=== PATIENT | male | born 1970 ===

== ENCOUNTER 2018-08-30 18:08 | Inpatient (IN) | payer BC ==
--- NOTE | 2018-08-30 19:20 | C.PDOC ---
History Of Present Illness 48 year old male presents to the ER with a complaint of intermittent fever since 08/14/18. He has been worked up without finding any actual source at another but had blood cultures done in another ER that were positive for gram negative rods. Patient only complains of nocturnal fevers, denies any other complaints. Time Seen by Provider: 08/30/18 19:19 Chief Complaint (Nursing): Fever History Per: Patient History/Exam Limitations: no limitations Onset/Duration Of Symptoms: Days, Intermittent Episodes Current Symptoms Are (Timing): Still Present Location Of Pain: None Associated Symptoms: Fever Severity: Moderate Pain Scale Rating Of: 4 Recent travel outside of the [place]: No Past Medical History Reviewed: Historical Data, Nursing Documentation, Vital Signs Vital Signs: Last Vital Signs Temp 97.9 F 08/30/18 18:12 Pulse 100 H 08/30/18 18:12 Resp 18 08/30/18 18:12 BP 118/84 08/30/18 18:12 Pulse Ox 97 08/30/18 18:12 - Medical History PMH: Hypercholesterolemia Surgical History: Tonsillectomy (and uvula removal) Family History: States: No Known Family Hx - Social History Hx Alcohol Use: Yes Hx Substance Use: No - Immunization History Hx Tetanus Toxoid Vaccination: No Hx Influenza Vaccination: Yes Hx Pneumococcal Vaccination: No Review Of Systems Constitutional: Positive for: Fever. Negative for: Chills Cardiovascular: Negative for: Chest Pain, Palpitations Respiratory: Negative for: Cough, Shortness of Breath Gastrointestinal: Negative for: Nausea, Vomiting Neurological: Negative for: Weakness, Numbness Physical Exam - Physical Exam Appears: Non-toxic Skin: Warm, Dry Head: Normacephalic Eye(s): bilateral: Normal Inspection Oral Mucosa: Moist Neck: Trachea Midline, Supple Chest: Symmetrical, No Tenderness Cardiovascular: Rhythm Regular Respiratory: No Rales, No Rhonchi, No Wheezing Gastrointestinal/Abdominal: Soft, No Tenderness Back: No CVA Tenderness Neurological/Psych: Oriented x3 ED Course And Treatment - Laboratory Results Result Diagrams: 08/30/18 19:29 08/30/18 19:29 ECG: Interpreted By Me, Viewed By Me ECG Rhythm: Sinus Rhythm (91), Nonspecific Changes O2 Sat by Pulse Oximetry: 97 (Room air) Pulse Ox Interpretation: Normal - Radiology CXR: Interpreted by Me, Viewed By Me CXR Interpretation: Yes: Infiltrates (?rll). No: COPD, Cardiomegaly Progress Note: EKG, blood work, CXR, and urinalysis ordered. spoke with dr franki bray with treatment course Disposition Discussed With .: Carmela Mccain Comment: accepted the pt on his service and took over the care at 8:07 PM Counseled Patient/Family Regarding: Studies Performed, Diagnosis - Disposition Disposition: HOSPITALIZED Disposition Time: 19:19 Condition: FAIR - POA Present On Arrival: Poor Glycemic Control - Clinical Impression Clinical Impression: Fever, Hepatic abscess - Scribe Statement The provider has reviewed the documentation as recorded by the Scribe Ashwin Jones All medical record entries made by the Scribe were at my direction and per sonally dictated by me. I have reviewed the chart and agree that the record accurately reflects my personal performance of the history, physical exam, medical decision making, and the department course for this patient. I have also personally directed, reviewed, and agree with the discharge instructions and disposition. Decision To Admit - Pt Status Changed To: Hospital Disposition Of: Inpatient - Admit Certification Admit to Inpatient:: After my assessment, the patient will require hospitalization for at least two midnights. This is because of the severity of symptoms shown, intensity of services needed, and/or the medical risk in this patient being treated as an outpatient. - InPatient: Physician Admission Certification:: After my assessment, the patient will require hospitalization for at least two midnights. This is because of the severity of symptoms shown, intensity of services needed, and/or the medical risk in this patient being treated as an outpatient. - . Bed Request Type: Regular Admitting Physician: Carmela Mccain Patient Diagnosis: Fever
[2018-08-30 19:35] LABS: BASO % 0.4 % (0.0-2.0); EOS % 0.3 % (0.0-4.0); HEMOGLOBIN 13.1 g/dL (12.0-18.0); LYMPH % 14.6 % (20.0-40.0); MEAN CELL VOLUME 92.4 fL (80.0-94.0); MEAN CORPUSCULAR HEMOGLOBIN 29.7 pg (27.0-31.0); MEAN CORPUSCULAR HGB CONC 32.1 g/dL (33.0-37.0); MEAN PLATELET VOLUME 7.4 fL (7.2-11.7); MONO # 1.3 K/uL (0.0-0.8); MONO % 9.8 % (0.0-10.0); NEUT # 10.3 K/uL (1.8-7.0); NEUT % 74.9 % (50.0-75.0); RBC 4.43 Mil/uL (4.40-5.90); RED CELL DISTRIBUTION WIDTH 14.2 % (11.5-14.5); WHITE BLOOD COUNT 13.7 K/uL (4.8-10.8)
[2018-08-30 19:38] LABS: VENOUS BLOOD GAS BASE EXCESS 3.1 mmol/L (0.0-2.0); VENOUS BLOOD GAS PCO2 51 mmHg (40-60); VENOUS BLOOD GAS PO2 16 mm/Hg (30-55); VENOUS BLOOD PH 7.37 (7.32-7.43)
[2018-08-30 19:45] LABS: ALB/GLOB RATIO 0.9 (1.0-2.1); ALBUMIN 4.5 g/dL (3.5-5.0); ALT/SGPT 73 U/L (21-72); AST/SGOT 57 U/L (17-59); BLOOD UREA NITROGEN 10 mg/dL (9-20); CALCIUM 9.4 mg/dl (8.6-10.4); GFR NON-AFRICAN AMERICAN > 60
[2018-08-30 19:51] LABS: INR 1.6; PROTHROMBIN TIME 17.1 SECONDS (9.7-12.2)
[2018-08-30] MEDS ORDERED: Azithromycin 500mg/250ML NS 500 MG/250 ML BAG IVPB ONE ×2 (20:00→20:11)
[2018-08-30] MEDS ORDERED: Iohexol 300 100 ML IJ ONE (20:53)
[2018-08-30] MEDS ORDERED: Dextrose 5%-0.225% NS 1,000 ML IV ONE (21:49)
[2018-08-30] MEDS: Dextrose 5%/0.45% NS 1,000 ML IV SCH (21:55)
[2018-08-30] MEDS ORDERED: metroNIDAZOLE IV 500 mg/100 ml 500 MG/100 ML BAG IVPB SCH (22:30)
--- NOTE | 2018-08-30 22:50 | CP.PCM.HP ---
History of Present Illness - History of Present Illness History of Present Illness: Chief complaint: Recurrent fever HPI: 48-year-old male with a history of diabetes, borderline prediabetes, and high cholesterol. Patient started noticing flulike symptoms 3 weeks ago, symptoms gradually got worse, 1 week later he went to the urgent care, patient underwent extensive workup, patient was sent home, and again his symptoms got bad, he went to the [facility] a week ago. At that time he had a fever again, but by the time he went to the emergency room he felt okay, patient was sent home after workup. Patient at home, continues to have a fever illness, especially at nighttime, severe chills associated with fever, when he takes the medication Advil, his symptoms get better, he started having shivering, and the sweating, and the fever goes away. During the daytime he is feeling well. But recently he also noticed that nausea. Poor appetite. No vomiting noted. No skin rash. Headache on and off noted. He denies any chest pain. No lung symptoms. in the emergency room at [facility] patient had blood test including culture, and 1 of the culture positive for gram-negative bacteroids. But the culture result was not complete at the time. But he had elevated WBC. Patient did not take any medications until now. Past medical history: History of syphilis 17 years ago. Patient had a now history of prediabetes, high cholesterol. Allergies no known drug allergy Personal history non-smoker nonalcoholic Patient born in [place], no recent travel. No recent hospitalization. No recent travel. Family history: Father had a history of hypertension heart disease. Mother also had a history of hypertension diabetes and myasthenia gravis Review of system: Headache noted. No visual symptoms. Known neck pain. No chest pain or shortness of breath. Sweating chills and fever present. Recurrent fever at nighttime mostly. Symptoms are almost 2-3 weeks now. Poor appetite. Weight loss. Fatigue noted. Weakness present. No diarrhea. No abdominal pain On examination: Vital signs are now noted. Stable. Chest good air entry no wheezing or rales noted Heart sounds are regular Abdominal tenderness negative. Bowel sounds are normal. Labs reviewed Elevated liver enzymes noted. Mild elevation of the WBC noted. He is no feels is less than normal. Pro-calcitonin is elevated. Elevated CRP level noted. Chest x-ray is nonspecific. Kyphosis changes noted. CAT scan of the abdomen chest pelvis noted. Almost 10 cm size abscess in the liver noted Assessment and recommendation: 48-year-old male now admitted with recurrent sepsis. Recurrent fever. Most likely liver abscess. Infectious disease evaluation. On antibiotic. Continue the antibiotic. Will get interventional radiology evaluation for possible drainage surgical evaluation may be needed. DVT GI prophylaxis and will follow the patient. Discussed with the patient in detail. Also discussed with the patient's partner in detail. Will control the glucose. Diabetes control. Blood pressure control. DVT and GI prophylaxis. Present on Admission - Present on Admission Any Indicators Present on Admission: No History of DVT/PE: No History of Uncontrolled Diabetes: No Urinary Catheter: No Decubitus Ulcer Present: No Past Patient History - Past Social History Smoking Status: Never Smoked - CARDIAC Hx Hypercholesterolemia: Yes - PULMONARY Hx Respiratory Disorders: No - ENDOCRINE/METABOLIC Hx Diabetes Mellitus Type 2: Yes (pre-diabetic) - PSYCHIATRIC Hx Substance Use: No - SURGICAL HISTORY Hx Tonsillectomy: Yes (and uvula removal) - ANESTHESIA Hx Anesthesia: Yes Meds Allergies/Adverse Reactions: Allergies Allergy/AdvReac Type Severity Reaction Status Date / Time No Known Allergies Allergy Verified 08/30/18 18:17 Results - Vital Signs Recent Vital Signs: Last Vital Signs Temp 98.4 F 08/30/18 21:55 Pulse 97 H 08/30/18 21:55 Resp 18 08/30/18 21:55 BP 138/81 08/30/18 21:55 Pulse Ox 97 08/30/18 22:29 - Labs Result Diagrams: 08/30/18 19:29 08/30/18 19:29 Labs: Laboratory Results - last 24 hr 08/30/18 08/30/18 08/30/18 18:30 19:29 19:29 WBC 13.7 H RBC 4.43 Hgb 13.1 Hct 40.9 MCV 92.4 MCH 29.7 MCHC 32.1 L RDW 14.2 Plt Count 583 H MPV 7.4 Neut % (Auto) 74.9 Lymph % (Auto) 14.6 L Daniels % (Auto) 9.8 Eos % (Auto) 0.3 Baso % (Auto) 0.4 Neut # (Auto) 10.3 H Lymph # (Auto) 2.0 Daniels # (Auto) 1.3 H Eos # (Auto) 0.0 Baso # (Auto) 0.0 PT 17.1 H INR 1.6 APTT 33 pO2 VBG pH VBG pCO2 VBG HCO3 VBG Total CO2 VBG O2 Sat (Calc) VBG Base Excess VBG Potassium Glucose Lactate Sodium Potassium Chloride Carbon Dioxide Anion Gap BUN Creatinine Est GFR ( Amer) Est GFR (Non-Af Amer) Random Glucose Calcium Phosphorus Magnesium Total Bilirubin AST ALT Alkaline Phosphatase C-React Prot High Sens Total Protein Albumin Globulin Albumin/Globulin Ratio Procalcitonin 4.13 H Venous Blood Potassium 08/30/18 08/30/18 08/30/18 19:29 19:29 19:32 WBC RBC Hgb Hct MCV MCH MCHC RDW Plt Count MPV Neut % (Auto) Lymph % (Auto) Daniels % (Auto) Eos % (Auto) Baso % (Auto) Neut # (Auto) Lymph # (Auto) Daniels # (Auto) Eos # (Auto) Baso # (Auto) PT INR APTT pO2 16 L VBG pH 7.37 VBG pCO2 51 VBG HCO3 25.3 VBG Total CO2 31.1 H VBG O2 Sat (Calc) 22.0 L VBG Base Excess 3.1 H VBG Potassium 4.0 Glucose 141 H Lactate 1.6 Sodium 137 137.0 Potassium 3.8 Chloride 95 L 101.0 Carbon Dioxide 29 Anion Gap 17 BUN 10 Creatinine 0.9 Est GFR ( Amer) > 60 Est GFR (Non-Af Amer) > 60 Random Glucose 145 H Calcium 9.4 Phosphorus 3.9 Magnesium 2.1 Total Bilirubin 0.8 AST 57 ALT 73 H Alkaline Phosphatase 162 H C-React Prot High Sens > 15.00 H Total Protein 9.6 H Albumin 4.5 Globulin 5.2 H Albumin/Globulin Ratio 0.9 L Procalcitonin Venous Blood Potassium 4.0
[2018-08-30] MEDS: metroNIDAZOLE IV 500 mg/100 ml 500 MG/100 ML BAG IVPB SCH (23:00)
[2018-08-30 23:19] LABS: URINE BILIRUBIN NEGATIVE (NEGATIVE); URINE BLOOD NEGATIVE (NEGATIVE); URINE CLARITY Clear (Clear); URINE COLOR Yellow (YELLOW); URINE GLUCOSE (UA) NORMAL (Normal); URINE LEUKOCYTE ESTERASE NEG Leu/uL (Negative); URINE PROTEIN 1+ mg/dL (NEGATIVE); URINE UROBILINOGEN NORMAL mg/dL (0.2-1.0)
[2018-08-31] MEDS: metroNIDAZOLE IV 500 mg/100 ml 500 MG/100 ML BAG IVPB SCH ×3 (05:48→19:20)
[2018-08-31] MEDS ORDERED: metroNIDAZOLE IV 500 mg/100 ml 500 MG/100 ML BAG ONE (05:49)
[2018-08-31 06:26] LABS: BASO # 0.1 K/uL (0.0-0.2); BASO % 0.5 % (0.0-2.0); EOS % 0.4 % (0.0-4.0); HEMOGLOBIN 11.6 g/dL (12.0-18.0); LYMPH # 2.1 K/uL (1.0-4.3); LYMPH % 19.6 % (20.0-40.0); MEAN CELL VOLUME 91.6 fL (80.0-94.0); MEAN CORPUSCULAR HEMOGLOBIN 31.2 pg (27.0-31.0); MEAN CORPUSCULAR HGB CONC 34.1 g/dL (33.0-37.0); MONO # 1.3 K/uL (0.0-0.8); MONO % 11.8 % (0.0-10.0); NEUT # 7.2 K/uL (1.8-7.0); NEUT % 67.7 % (50.0-75.0); RBC 3.72 Mil/uL (4.40-5.90); WHITE BLOOD COUNT 10.7 K/uL (4.8-10.8)
[2018-08-31 06:42] LABS: ALB/GLOB RATIO 0.9 (1.0-2.1); ALBUMIN 3.9 g/dL (3.5-5.0); ALT/SGPT 75 U/L (21-72); AST/SGOT 60 U/L (17-59); BLOOD UREA NITROGEN 9 mg/dL (9-20); CALCIUM 8.7 mg/dl (8.6-10.4); GFR NON-AFRICAN AMERICAN > 60
--- NOTE | 2018-08-31 07:23 | CT ---
Date of service: 08/30/2018 PROCEDURE: CT HEAD WITHOUT CONTRAST. HISTORY: fever, headache COMPARISON: None available. TECHNIQUE: Axial computed tomography images were obtained through the head/brain without intravenous contrast. Radiation dose: Total exam DLP = 1131.56 mGy-cm. This CT exam was performed using one or more of the following dose reduction techniques: Automated exposure control, adjustment of the mA and/or kV according to patient size, and/or use of iterative reconstruction technique. FINDINGS: HEMORRHAGE: No intracranial hemorrhage. BRAIN: No mass effect or edema. No atrophy or chronic microvascular ischemic changes. VENTRICLES: Unremarkable. No hydrocephalus. CALVARIUM: Unremarkable. PARANASAL SINUSES: Unremarkable as visualized. No significant inflammatory changes. MASTOID AIR CELLS: Unremarkable as visualized. No inflammatory changes. OTHER FINDINGS: None. IMPRESSION: No acute intracranial abnormality. If symptoms persists, consider correlation with MRI. A preliminary report was generated at 9:40 p.m. on 08/30/[address] Ayaz Lara from [employer].
--- NOTE | 2018-08-31 08:23 | RAD ---
HISTORY: Sepsis Patient COMPARISON: None available. TECHNIQUE: Chest, one view. FINDINGS: LUNGS: Minimal [id number] basilar atelectasis. Developing infiltrate not excluded in the proper clinical setting. Please note that chest x-ray has limited sensitivity for the detection of pulmonary masses. PLEURA: No significant pleural effusion identified. No definite pneumothorax . CARDIOVASCULAR: Borderline cardiomegaly. No significant atherosclerotic calcification present. OSSEOUS STRUCTURES: Degenerative changes. VISUALIZED UPPER ABDOMEN: Unremarkable. OTHER FINDINGS: None. IMPRESSION: Minimal [id number]-[id number]-jcjl-right basilar atelectasis. Developing infiltrate not excluded in the proper clinical setting.
--- NOTE | 2018-08-31 08:34 | CP.PCM.CON ---
History of Present Illness - History of Present Illness History of Present Illness: Surgery Consult Note. Dr. Donato 48yo M with PMHx of PreDiabetes, HTN, HLD here for evaluation of fevers as high as 104 F for the past 2 weeks. Also reports some loss of appetite and fatigue. Patient denies any sick contacts. No N/V/D. No Abd pain. Denies any recent travel. Has never had similar problems before. Denies any chest pain, no SOB. No urinary complaints. Ate a full breakfast this morning at 7AM. CT scan performed with evidence of a 10cm liver abscess. PMHx: PreDiabetes, HTN, HLD PSHx: Denies Family Hx: non-contributory Social Hx: Denies Tobacco use; Social ETOH us; Denies illicit drugs NKDA Review of Systems - Review of Systems All systems: reviewed and no additional remarkable complaints except - Constitutional Constitutional: As Per HPI, Chills, Fatigue, Fever Past Patient History - Past Social History Smoking Status: Never Smoked Alcohol: Social Drugs: Denies - CARDIAC Hx Hypercholesterolemia: Yes - PULMONARY Hx Respiratory Disorders: No - ENDOCRINE/METABOLIC Hx Diabetes Mellitus Type 2: Yes (pre-diabetic) - PSYCHIATRIC Hx Substance Use: No - SURGICAL HISTORY Hx Tonsillectomy: Yes (and uvula removal) - ANESTHESIA Hx Anesthesia: Yes Meds Allergies/Adverse Reactions: Allergies Allergy/AdvReac Type Severity Reaction Status Date / Time No Known Allergies Allergy Verified 08/30/18 18:17 - Medications Medications: Current Medications Heparin Sodium (Porcine) (Heparin) 5,000 units SC Q8 OMI Last Admin: 08/31/18 05:59 Dose: 5,000 units Ceftriaxone Sodium (Rocephin 2 Gm Ivpb) 2 gm in 100 mls @ 100 mls/hr IVPB 12 OMI; Protocol Azithromycin 500 mg/ Sodium (Chloride) 250 mls @ 250 mls/hr IVPB DAILY OMI; Protocol Ceftriaxone Sodium 1 gm/ (Sodium Chloride) 100 mls @ 100 mls/hr IVPB Q12H OMI; Protocol Dextrose/Sodium Chloride (Dextrose 5%/0.45% Ns 1000 Ml) 1,000 mls @ 100 mls/hr IV .Q10H OMI Last Admin: 08/30/18 21:55 Dose: 100 mls/hr Metronidazole (Flagyl) 500 mg in 100 mls @ 100 mls/hr IVPB STAT OMI; Protocol Metronidazole (Flagyl) 500 mg in 100 mls @ 100 mls/hr IVPB Q8H OMI; Protocol Stop: 09/01/18 15:29 Last Admin: 08/31/18 05:48 Dose: 100 mls/hr Pantoprazole Sodium (Protonix Inj) 40 mg IVP DAILY [facility] Phytonadione (Vitamin K Tab) 5 mg PO ONCE ONE Stop: 08/31/18 22:57 Physical Exam - Constitutional Appears: Non-toxic, No Acute Distress - Head Exam Head Exam: ATRAUMATIC, NORMAL INSPECTION, NORMOCEPHALIC - Eye Exam Eye Exam: EOMI, Normal appearance. absent: Scleral icterus - ENT Exam ENT Exam: Mucous Membranes Moist - Respiratory Exam Respiratory Exam: NORMAL BREATHING PATTERN. absent: Accessory Muscle Use, Respiratory Distress - Cardiovascular Exam Cardiovascular Exam: absent: JVD - GI/Abdominal Exam GI & Abdominal Exam: Soft. absent: Distended, Firm, Guarding, Rebound, Rigid, Tenderness - Extremities Exam Extremities exam: Positive for: normal inspection. Negative for: calf tenderness - Neurological Exam Neurological exam: Alert, Normal Gait, Oriented x3 - Psychiatric Exam Psychiatric exam: Normal Affect, Normal Mood - Skin Skin Exam: Dry, Intact, Normal Color, Warm Results - Vital Signs Recent Vital Signs: Last Vital Signs Temp 98.9 F 08/31/18 05:30 Pulse 88 08/31/18 05:30 Resp 14 08/31/18 05:30 BP 115/80 08/31/18 05:30 Pulse Ox 99 08/31/18 05:30 - Labs Result Diagrams: 08/31/18 06:21 08/31/18 06:21 Labs: Laboratory Results - last 24 hr 08/30/18 08/30/18 08/30/18 18:30 19:29 19:29 WBC 13.7 H RBC 4.43 Hgb 13.1 Hct 40.9 MCV 92.4 MCH 29.7 MCHC 32.1 L RDW 14.2 Plt Count 583 H MPV 7.4 Neut % (Auto) 74.9 Lymph % (Auto) 14.6 L Gibson % (Auto) 9.8 Eos % (Auto) 0.3 Baso % (Auto) 0.4 Neut # (Auto) 10.3 H Lymph # (Auto) 2.0 Gibson # (Auto) 1.3 H Eos # (Auto) 0.0 Baso # (Auto) 0.0 ESR PT 17.1 H INR 1.6 APTT 33 pO2 VBG pH VBG pCO2 VBG HCO3 VBG Total CO2 VBG O2 Sat (Calc) VBG Base Excess VBG Potassium Glucose Lactate Sodium Potassium Chloride Carbon Dioxide Anion Gap BUN Creatinine Est GFR ( Amer) Est GFR (Non-Af Amer) POC Glucose (mg/dL) Random Glucose Calcium Phosphorus Magnesium Total Bilirubin AST ALT Alkaline Phosphatase C-React Prot High Sens Total Protein Albumin Globulin Albumin/Globulin Ratio Procalcitonin 4.13 H Venous Blood Potassium Urine Color Urine Clarity Urine pH Ur Specific [place] Urine Protein Urine Glucose (UA) Urine Ketones Urine Blood Urine Nitrate Urine Bilirubin Urine Urobilinogen Ur Leukocyte Esterase Urine WBC (Auto) Urine RBC (Auto) Hep Bs Antigen Hep Bs Antibody 08/30/18 08/30/18 08/30/18 19:29 19:29 19:32 WBC RBC Hgb Hct MCV MCH MCHC RDW Plt Count MPV Neut % (Auto) Lymph % (Auto) Gibson % (Auto) Eos % (Auto) Baso % (Auto) Neut # (Auto) Lymph # (Auto) Gibson # (Auto) Eos # (Auto) Baso # (Auto) ESR PT INR APTT pO2 16 L VBG pH 7.37 VBG pCO2 51 VBG HCO3 25.3 VBG Total CO2 31.1 H VBG O2 Sat (Calc) 22.0 L VBG Base Excess 3.1 H VBG Potassium 4.0 Glucose 141 H Lactate 1.6 Sodium 137 137.0 Potassium 3.8 Chloride 95 L 101.0 Carbon Dioxide 29 Anion Gap 17 BUN 10 Creatinine 0.9 Est GFR ( Amer) > 60 Est GFR (Non-Af Amer) > 60 POC Glucose (mg/dL) Random Glucose 145 H Calcium 9.4 Phosphorus 3.9 Magnesium 2.1 Total Bilirubin 0.8 AST 57 ALT 73 H Alkaline Phosphatase 162 H C-React Prot High Sens > 15.00 H Total Protein 9.6 H Albumin 4.5 Globulin 5.2 H Albumin/Globulin Ratio 0.9 L Procalcitonin Venous Blood Potassium 4.0 Urine Color Urine Clarity Urine pH Ur Specific [place] Urine Protein Urine Glucose (UA) Urine Ketones Urine Blood Urine Nitrate Urine Bilirubin Urine Urobilinogen Ur Leukocyte Esterase Urine WBC (Auto) Urine RBC (Auto) Hep Bs Antigen Hep Bs Antibody 08/30/18 08/30/18 08/30/18 22:05 22:05 22:05 WBC RBC Hgb Hct MCV MCH MCHC RDW Plt Count MPV Neut % (Auto) Lymph % (Auto) Gibson % (Auto) Eos % (Auto) Baso % (Auto) Neut # (Auto) Lymph # (Auto) Gibson # (Auto) Eos # (Auto) Baso # (Auto) ESR 112 H PT INR APTT pO2 VBG pH VBG pCO2 VBG HCO3 VBG Total CO2 VBG O2 Sat (Calc) VBG Base Excess VBG Potassium Glucose Lactate Sodium Potassium Chloride Carbon Dioxide Anion Gap BUN Creatinine Est GFR ( Amer) Est GFR (Non-Af Amer) POC Glucose (mg/dL) Random Glucose Calcium Phosphorus Magnesium Total Bilirubin AST ALT Alkaline Phosphatase C-React Prot High Sens Total Protein Albumin Globulin Albumin/Globulin Ratio Procalcitonin Venous Blood Potassium Urine Color Urine Clarity Urine pH Ur Specific [place] Urine Protein Urine Glucose (UA) Urine Ketones Urine Blood Urine Nitrate Urine Bilirubin Urine Urobilinogen Ur Leukocyte Esterase Urine WBC (Auto) Urine RBC (Auto) Hep Bs Antigen Negative Hep Bs Antibody Positive 08/30/18 08/30/18 08/31/18 23:13 23:23 06:21 WBC 10.7 RBC 3.72 L Hgb 11.6 L Hct 34.1 L MCV 91.6 MCH 31.2 H MCHC 34.1 RDW 14.0 Plt Count 472 H D MPV 7.0 L Neut % (Auto) 67.7 Lymph % (Auto) 19.6 L Gibson % (Auto) 11.8 H Eos % (Auto) 0.4 Baso % (Auto) 0.5 Neut # (Auto) 7.2 H Lymph # (Auto) 2.1 Gibson # (Auto) 1.3 H Eos # (Auto) 0.0 Baso # (Auto) 0.1 ESR PT INR APTT pO2 VBG pH VBG pCO2 VBG HCO3 VBG Total CO2 VBG O2 Sat (Calc) VBG Base Excess VBG Potassium Glucose Lactate Sodium Potassium Chloride Carbon Dioxide Anion Gap BUN Creatinine Est GFR ( Amer) Est GFR (Non-Af Amer) POC Glucose (mg/dL) 196 H Random Glucose Calcium Phosphorus Magnesium Total Bilirubin AST ALT Alkaline Phosphatase C-React Prot High Sens Total Protein Albumin Globulin Albumin/Globulin Ratio Procalcitonin Venous Blood Potassium Urine Color Yellow Urine Clarity Clear Urine pH 5.0 Ur Specific [place] 1.042 H Urine Protein 1+ H Urine Glucose (UA) Normal Urine Ketones Negative Urine Blood Negative Urine Nitrate Negative Urine Bilirubin Negative Urine Urobilinogen Normal Ur Leukocyte Esterase Neg Urine WBC (Auto) 2 Urine RBC (Auto) 1 Hep Bs Antigen Hep Bs Antibody 08/31/18 06:21 WBC RBC Hgb Hct MCV MCH MCHC RDW Plt Count MPV Neut % (Auto) Lymph % (Auto) Gibson % (Auto) Eos % (Auto) Baso % (Auto) Neut # (Auto) Lymph # (Auto) Gibson # (Auto) Eos # (Auto) Baso # (Auto) ESR PT INR APTT pO2 VBG pH VBG pCO2 VBG HCO3 VBG Total CO2 VBG O2 Sat (Calc) VBG Base Excess VBG Potassium Glucose Lactate Sodium 134 Potassium 4.3 Chloride 97 L Carbon Dioxide 30 Anion Gap 12 BUN 9 Creatinine 0.9 Est GFR ( Amer) > 60 Est GFR (Non-Af Amer) > 60 POC Glucose (mg/dL) Random Glucose 136 H Calcium 8.7 Phosphorus Magnesium Total Bilirubin 0.7 AST 60 H ALT 75 H Alkaline Phosphatase 134 H C-React Prot High Sens Total Protein 8.2 Albumin 3.9 Globulin 4.3 H Albumin/Globulin Ratio 0.9 L Procalcitonin Venous Blood Potassium Urine Color Urine Clarity Urine pH Ur Specific [place] Urine Protein Urine Glucose (UA) Urine Ketones Urine Blood Urine Nitrate Urine Bilirubin Urine Urobilinogen Ur Leukocyte Esterase Urine WBC (Auto) Urine RBC (Auto) Hep Bs Antigen Hep Bs Antibody Assessment & Plan - Assessment and Plan (Free Text) Assessment: 48yo M with liver abscess. -CT scan noted. Plan: - Recommend Hepato Biliary surgery consult - Will discuss case with Dr. Brown Further recs as per Dr. Kinga Ambrose PGY2 Surgery
[2018-08-31] MEDS ORDERED: Azithromycin 500 MG in Sodium Chloride 0.9% 250 ML IVPB SCH (10:00)
--- NOTE | 2018-08-31 10:09 | CT ---
Date of service: 08/30/2018 CT chest, abdomen, and pelvis with IV contrast Indication: g neg sepsis Technique: Contiguous axial images of the chest, abdomen, and pelvis. Coronal and Sagittal reformats generated and reviewed. This CT exam was performed using 1 or more of the following dose reduction techniques: Automated exposure control, adjustment of the MAA and/or kV according to patient size, and/or use of iterative reconstruction technique. Contrast: 100 cc Omnipaque 300 IV Radiation dose: Total exam DLP = 1004.95 MGy-cm. Comparison: None available. Findings: Visualized portions of the inferior thyroid gland appear unremarkable. The mediastinal and hilar vascular structures appear within normal limits. The heart appears within normal limits of size. No focal consolidation. No pleural effusion. No pneumothorax. No suspicious pulmonary nodules measuring greater than 5 mm. Complex lobulated and septated heterogeneous low-density mass with peripheral hyperdensity/enhancement measuring approximately 10.7 x 7.3 x 6.9 cm consistent with intrahepatic abscess, posterior right hepatic lobe. The spleen, kidneys, pancreas, adrenal glands, and contracted gallbladder appear otherwise unremarkable. The stomach is nondistended. Diverticulosis without CT evidence of acute diverticulitis. The bowel loops appear within normal limits of caliber without evidence of intestinal obstruction. The appendix appears within normal limits of caliber. No secondary signs of acute appendicitis. There is no definite free air. The prostate gland measures approximately 3.4 x 4.4 cm. The urinary bladder appears unremarkable. Bilateral gynecomastia. Degenerative changes. Impression: Complex lobulated and septated heterogeneous low-density mass with peripheral hyperdensity/enhancement measuring approximately 10.7 x 7.3 x 6.9 cm consistent with intrahepatic abscess, posterior right hepatic lobe. Preliminary impression was provided by [email or web address].
--- NOTE | 2018-08-31 10:36 | CP.PCM.PN ---
Subjective - Date & Time of Evaluation Date of Evaluation: 08/31/18 Time of Evaluation: 10:30 - Subjective Subjective: pt feeling well no fever last night on antibiotics seen by surgery will get hepatobiliary consult pt may need drain will continue to monitor on antibiotics Objective - Vital Signs/Intake and Output Vital Signs (last 24 hours): Temp Pulse Resp BP Pulse Ox 98.7 F 98 H 20 132/82 95 08/31/18 08:35 08/31/18 08:35 08/31/18 08:35 08/31/18 08:35 08/31/18 08:35 - Medications Medications: Current Medications Heparin Sodium (Porcine) (Heparin) 5,000 units SC Q8 OMI Last Admin: 08/31/18 05:59 Dose: 5,000 units Azithromycin 500 mg/ Sodium (Chloride) 250 mls @ 250 mls/hr IVPB DAILY OMI; Protocol Ceftriaxone Sodium 1 gm/ (Sodium Chloride) 100 mls @ 100 mls/hr IVPB Q12H OMI; Protocol Last Admin: 08/31/18 10:04 Dose: 100 mls/hr Dextrose/Sodium Chloride (Dextrose 5%/0.45% Ns 1000 Ml) 1,000 mls @ 100 mls/hr IV .Q10H OMI Last Admin: 08/30/18 21:55 Dose: 100 mls/hr Metronidazole (Flagyl) 500 mg in 100 mls @ 100 mls/hr IVPB STAT OMI; Protocol Metronidazole (Flagyl) 500 mg in 100 mls @ 100 mls/hr IVPB Q8H OMI; Protocol Stop: 09/01/18 15:29 Last Admin: 08/31/18 05:48 Dose: 100 mls/hr Pantoprazole Sodium (Protonix Inj) 40 mg IVP DAILY OMI Last Admin: 08/31/18 10:03 Dose: 40 mg Phytonadione (Vitamin K Tab) 5 mg PO ONCE ONE Stop: 08/31/18 22:57 - Labs Labs: 08/31/18 06:21 08/31/18 06:21 PT 17.1 SECONDS (9.7-12.2) H 08/30/18 19:29 INR 1.6 08/30/18 19:29 APTT 33 SECONDS (21-34) 08/30/18 19:29
[2018-08-31] MEDS ORDERED: cefTRIAXone 2 GM IN NS 2 GM/100 ML BAG IVPB SCH (12:00)
--- NOTE | 2018-08-31 12:19 | CP.PCM.CON ---
History of Present Illness - History of Present Illness History of Present Illness: 48 year old male with a 1 month history of weakness, intermittant fever and chills. Was seen at [facility] several times and discharged. Ultimately came to [facility] and had a CT of the abdomin showing a 10 x 6 cm right lobe abscess. He denies IVDA, poor dentition, gallstones, or appendicitis. He is having male intercourse, and traveled to [place] in December 2017. He denies weight or change in appetite. Review of Systems - Review of Systems All systems: reviewed and no additional remarkable complaints except - Constitutional Constitutional: Fatigue, Fever Past Patient History - Infectious Disease Hx of Infectious Diseases: None - Past Medical History & Family History Past Medical History?: No Past Family History: Reviewed and not pertinent - Past Social History Smoking Status: Never Smoked Chewing Tobacco Use: No Cigar Use: No Occupation: self employed Alcohol: Occasional Drugs: Denies Home Situation {Lives}: Other - CARDIAC Hx Cardiac Disorders: No Hx Angina: No Hx Atrial Fibrillation: No Hx Cardia Arrhythmia: No Hx Circulatory Problems: No Hx Congestive Heart Failure: No Hx Heart Attack: No Hx Heart Murmur: No Hx Heart Transplant: No Hx Hypercholesterolemia: No Hx Hypertension: No Hx Hypotension: No Hx Internal Defibrillator: No Hx Mitral Valve Prolapse: No Hx Pacemaker: No Hx Peripheral Edema: No Hx Peripheral Vascular Disease: No - PULMONARY Hx Respiratory Disorders: No Hx Asthma: No Hx Bronchitis: No Hx Chronic Obstructive Pulmonary Disease (COPD): No Hx Emphysema: No Hx Lung Cancer: No Hx Pneumonia: No Hx Pulmonary Edema: No Hx Pulmonary Embolism: No Hx Respiratory Aspiration: No Hx Respiratory Tract Infection: No Hx Sleep Apnea: No Hx Tuberculosis: No - ENDOCRINE/METABOLIC Hx Diabetes Mellitus Type 2: Yes (pre-diabetic) - PSYCHIATRIC Hx Substance Use: No - SURGICAL HISTORY Hx Tonsillectomy: Yes (and uvula removal) - ANESTHESIA Hx Anesthesia: Yes Meds Allergies/Adverse Reactions: Allergies Allergy/AdvReac Type Severity Reaction Status Date / Time No Known Allergies Allergy Verified 08/30/18 18:17 - Medications Medications: Current Medications Heparin Sodium (Porcine) (Heparin) 5,000 units SC Q8 OMI Last Admin: 08/31/18 05:59 Dose: 5,000 units Azithromycin 500 mg/ Sodium (Chloride) 250 mls @ 250 mls/hr IVPB DAILY OMI; Protocol Ceftriaxone Sodium 1 gm/ (Sodium Chloride) 100 mls @ 100 mls/hr IVPB Q12H OMI; Protocol Last Admin: 08/31/18 10:04 Dose: 100 mls/hr Dextrose/Sodium Chloride (Dextrose 5%/0.45% Ns 1000 Ml) 1,000 mls @ 100 mls/hr IV .Q10H [facility] Last Admin: 08/30/18 21:55 Dose: 100 mls/hr Metronidazole (Flagyl) 500 mg in 100 mls @ 100 mls/hr IVPB STAT OMI; Protocol Metronidazole (Flagyl) 500 mg in 100 mls @ 100 mls/hr IVPB Q8H OMI; Protocol Stop: 09/01/18 15:29 Last Admin: 08/31/18 05:48 Dose: 100 mls/hr Pantoprazole Sodium (Protonix Inj) 40 mg IVP DAILY [facility] Last Admin: 08/31/18 10:03 Dose: 40 mg Phytonadione (Vitamin K Tab) 5 mg PO ONCE ONE Stop: 08/31/18 22:57 Physical Exam - Constitutional Appears: Well - Head Exam Head Exam: ATRAUMATIC - Eye Exam Eye Exam: Normal appearance - Neck Exam Neck exam: Positive for: Full Rom - Respiratory Exam Respiratory Exam: Clear to Auscultation Bilateral - Cardiovascular Exam Cardiovascular Exam: REGULAR RHYTHM - GI/Abdominal Exam GI & Abdominal Exam: Normal Bowel Sounds, Soft - Rectal Exam Rectal Exam: Deferred - Extremities Exam Extremities exam: Positive for: full ROM, normal inspection - Back Exam Back exam: NORMAL INSPECTION - Neurological Exam Neurological exam: Alert, Normal Gait, Oriented x3, Reflexes Normal - Psychiatric Exam Psychiatric exam: Normal Affect - Skin Skin Exam: Normal Color, Warm Results - Vital Signs Recent Vital Signs: Last Vital Signs Temp 98.7 F 08/31/18 08:35 Pulse 98 H 08/31/18 08:35 Resp 20 08/31/18 08:35 BP 132/82 08/31/18 08:35 Pulse Ox 95 08/31/18 08:35 - Labs Result Diagrams: 08/31/18 06:21 08/31/18 06:21 Labs: Laboratory Results - last 24 hr 08/30/18 08/30/18 08/30/18 18:30 19:29 19:29 WBC 13.7 H RBC 4.43 Hgb 13.1 Hct 40.9 MCV 92.4 MCH 29.7 MCHC 32.1 L RDW 14.2 Plt Count 583 H MPV 7.4 Neut % (Auto) 74.9 Lymph % (Auto) 14.6 L Towner % (Auto) 9.8 Eos % (Auto) 0.3 Baso % (Auto) 0.4 Neut # (Auto) 10.3 H Lymph # (Auto) 2.0 Towner # (Auto) 1.3 H Eos # (Auto) 0.0 Baso # (Auto) 0.0 ESR PT 17.1 H INR 1.6 APTT 33 pO2 VBG pH VBG pCO2 VBG HCO3 VBG Total CO2 VBG O2 Sat (Calc) VBG Base Excess VBG Potassium Glucose Lactate Sodium Potassium Chloride Carbon Dioxide Anion Gap BUN Creatinine Est GFR ( Amer) Est GFR (Non-Af Amer) POC Glucose (mg/dL) Random Glucose Calcium Phosphorus Magnesium Total Bilirubin AST ALT Alkaline Phosphatase C-React Prot High Sens Total Protein Albumin Globulin Albumin/Globulin Ratio Procalcitonin 4.13 H Venous Blood Potassium Urine Color Urine Clarity Urine pH Ur Specific Covert Urine Protein Urine Glucose (UA) Urine Ketones Urine Blood Urine Nitrate Urine Bilirubin Urine Urobilinogen Ur Leukocyte Esterase Urine WBC (Auto) Urine RBC (Auto) Hep Bs Antigen Hep Bs Antibody 08/30/18 08/30/18 08/30/18 19:29 19:29 19:32 WBC RBC Hgb Hct MCV MCH MCHC RDW Plt Count MPV Neut % (Auto) Lymph % (Auto) Towner % (Auto) Eos % (Auto) Baso % (Auto) Neut # (Auto) Lymph # (Auto) Towner # (Auto) Eos # (Auto) Baso # (Auto) ESR PT INR APTT pO2 16 L VBG pH 7.37 VBG pCO2 51 VBG HCO3 25.3 VBG Total CO2 31.1 H VBG O2 Sat (Calc) 22.0 L VBG Base Excess 3.1 H VBG Potassium 4.0 Glucose 141 H Lactate 1.6 Sodium 137 137.0 Potassium 3.8 Chloride 95 L 101.0 Carbon Dioxide 29 Anion Gap 17 BUN 10 Creatinine 0.9 Est GFR ( Amer) > 60 Est GFR (Non-Af Amer) > 60 POC Glucose (mg/dL) Random Glucose 145 H Calcium 9.4 Phosphorus 3.9 Magnesium 2.1 Total Bilirubin 0.8 AST 57 ALT 73 H Alkaline Phosphatase 162 H C-React Prot High Sens > 15.00 H Total Protein 9.6 H Albumin 4.5 Globulin 5.2 H Albumin/Globulin Ratio 0.9 L Procalcitonin Venous Blood Potassium 4.0 Urine Color Urine Clarity Urine pH Ur Specific Covert Urine Protein Urine Glucose (UA) Urine Ketones Urine Blood Urine Nitrate Urine Bilirubin Urine Urobilinogen Ur Leukocyte Esterase Urine WBC (Auto) Urine RBC (Auto) Hep Bs Antigen Hep Bs Antibody 08/30/18 08/30/18 08/30/18 22:05 22:05 22:05 WBC RBC Hgb Hct MCV MCH MCHC RDW Plt Count MPV Neut % (Auto) Lymph % (Auto) Towner % (Auto) Eos % (Auto) Baso % (Auto) Neut # (Auto) Lymph # (Auto) Towner # (Auto) Eos # (Auto) Baso # (Auto) ESR 112 H PT INR APTT pO2 VBG pH VBG pCO2 VBG HCO3 VBG Total CO2 VBG O2 Sat (Calc) VBG Base Excess VBG Potassium Glucose Lactate Sodium Potassium Chloride Carbon Dioxide Anion Gap BUN Creatinine Est GFR ( Amer) Est GFR (Non-Af Amer) POC Glucose (mg/dL) Random Glucose Calcium Phosphorus Magnesium Total Bilirubin AST ALT Alkaline Phosphatase C-React Prot High Sens Total Protein Albumin Globulin Albumin/Globulin Ratio Procalcitonin Venous Blood Potassium Urine Color Urine Clarity Urine pH Ur Specific Covert Urine Protein Urine Glucose (UA) Urine Ketones Urine Blood Urine Nitrate Urine Bilirubin Urine Urobilinogen Ur Leukocyte Esterase Urine WBC (Auto) Urine RBC (Auto) Hep Bs Antigen Negative Hep Bs Antibody Positive 08/30/18 08/30/18 08/31/18 23:13 23:23 06:21 WBC 10.7 RBC 3.72 L Hgb 11.6 L Hct 34.1 L MCV 91.6 MCH 31.2 H MCHC 34.1 RDW 14.0 Plt Count 472 H D MPV 7.0 L Neut % (Auto) 67.7 Lymph % (Auto) 19.6 L Towner % (Auto) 11.8 H Eos % (Auto) 0.4 Baso % (Auto) 0.5 Neut # (Auto) 7.2 H Lymph # (Auto) 2.1 Towner # (Auto) 1.3 H Eos # (Auto) 0.0 Baso # (Auto) 0.1 ESR PT INR APTT pO2 VBG pH VBG pCO2 VBG HCO3 VBG Total CO2 VBG O2 Sat (Calc) VBG Base Excess VBG Potassium Glucose Lactate Sodium Potassium Chloride Carbon Dioxide Anion Gap BUN Creatinine Est GFR ( Amer) Est GFR (Non-Af Amer) POC Glucose (mg/dL) 196 H Random Glucose Calcium Phosphorus Magnesium Total Bilirubin AST ALT Alkaline Phosphatase C-React Prot High Sens Total Protein Albumin Globulin Albumin/Globulin Ratio Procalcitonin Venous Blood Potassium Urine Color Yellow Urine Clarity Clear Urine pH 5.0 Ur Specific Covert 1.042 H Urine Protein 1+ H Urine Glucose (UA) Normal Urine Ketones Negative Urine Blood Negative Urine Nitrate Negative Urine Bilirubin Negative Urine Urobilinogen Normal Ur Leukocyte Esterase Neg Urine WBC (Auto) 2 Urine RBC (Auto) 1 Hep Bs Antigen Hep Bs Antibody 08/31/18 08/31/18 06:21 11:28 WBC RBC Hgb Hct MCV MCH MCHC RDW Plt Count MPV Neut % (Auto) Lymph % (Auto) Towner % (Auto) Eos % (Auto) Baso % (Auto) Neut # (Auto) Lymph # (Auto) Towner # (Auto) Eos # (Auto) Baso # (Auto) ESR PT INR APTT pO2 VBG pH VBG pCO2 VBG HCO3 VBG Total CO2 VBG O2 Sat (Calc) VBG Base Excess VBG Potassium Glucose Lactate Sodium 134 Potassium 4.3 Chloride 97 L Carbon Dioxide 30 Anion Gap 12 BUN 9 Creatinine 0.9 Est GFR ( Amer) > 60 Est GFR (Non-Af Amer) > 60 POC Glucose (mg/dL) 152 H Random Glucose 136 H Calcium 8.7 Phosphorus Magnesium Total Bilirubin 0.7 AST 60 H ALT 75 H Alkaline Phosphatase 134 H C-React Prot High Sens Total Protein 8.2 Albumin 3.9 Globulin 4.3 H Albumin/Globulin Ratio 0.9 L Procalcitonin Venous Blood Potassium Urine Color Urine Clarity Urine pH Ur Specific Covert Urine Protein Urine Glucose (UA) Urine Ketones Urine Blood Urine Nitrate Urine Bilirubin Urine Urobilinogen Ur Leukocyte Esterase Urine WBC (Auto) Urine RBC (Auto) Hep Bs Antigen Hep Bs Antibody - Imaging and Cardiology CT scan - abdomen Status: Image reviewed by me (10 x 6 right lobe hepatic abscess) Assessment & Plan (1) Fever Status: Acute Comment: currently on IV antibiotics, does not appear toxic (2) Hepatic abscess Status: Acute Priority: High Comment: CT scan reviewed, consistent with hepatic abscess. Patient does not appear to have typical risk factors, however he does have sex with his male partner and was in [place] during December 2017. He should also have his HIV status checked.
[2018-08-31] MEDS ORDERED: Midazolam 2 MG/2 ML VIAL ONE (12:41)
[2018-08-31] MEDS ORDERED: Lidocaine Hydrochloride 0 ML INJ ONE (12:41)
--- NOTE | 2018-08-31 13:09 | PCM.SURG1 ---
Surgeon's Initial Post Op Note - Surgeon's Notes Surgeon: Isra Sinclair MD Manager In Home: NONE Type of Anesthesia: Moderate Sedation{RN} Pre-Operative Diagnosis: Liver abscess Operative Findings: CT showed complex right hepatic collection Post-Operative Diagnosis: Liver abscess Operation Performed: CT guided abscess draiange. Placement of a 10 fr pigtail drain. Specimen/Specimens Removed: 20 cc of viscous bloody fluid Estimated Blood Loss: EBL {In ML}: 1 Blood Products Given: N/A Drains Used: Kamlseh Pimentel Post-Op Condition: Fair Date of Surgery/Procedure: 08/31/18 Time of Surgery/Procedure: 13:05
[2018-08-31] MEDS ORDERED: Morphine 4 MG/ML VIAL IVP PRN ×2 (13:37→21:16)
[2018-08-31] MEDS: Dextrose 5%/0.45% NS 1,000 ML IV SCH ×2 (13:48→16:46)
--- NOTE | 2018-08-31 13:49 | CT ---
PROCEDURE: Date of procedure: 08/31/2018 Procedure: 1. LIVER abscess drainage with CT guidance, CPT 89828 Medications: The patient received IV sedation administered by anesthesiologist Radiation: 856.14 MGy-cm HISTORY: Liver abscess TECHNIQUE: Following informed consent procedure time-out, non contrast CT was performed which showed a large complex collection within the right hepatic lobe. The skin localizer was placed on the patient's abdomen and a repeat CT scan performed. The skin was marked, prepped, and draped in the usual sterile fashion. Under CT guidance, a SignNow drainage catheter was advanced into the collection. Upon return of bloody, purulent drainage, the catheter exchanged over an 035 guidewire and the tract was dilated to accommodate a 10 Icelandic pigtail drainage catheter formed within the collection. The position of the 10 Fr drainage catheter was confirmed with repeat CT scan. 20 cubic centimeters of bloody, purulent drainage was removed and sent for culture and sensitivity. The catheter was secured the patient's skin. A dressing was applied. IMPRESSION: CT-guided abscess drainage within the placement of a 10 Icelandic drainage catheter with liver abscess. The fluid specimen was sent for culture and sensitivity.
[2018-08-31] MEDS ORDERED: Alum-Mag Hydrox-Simethicone Susp (30 mL) PO STA (18:41)
--- NOTE | 2018-08-31 18:42 | CP.PCM.CON ---
History of Present Illness - History of Present Illness History of Present Illness: INFECTIOUS DISEASE CONSULTATION ESAU DANIELS MD, FACP 5T 557-B 08/31/2018 CHART REVIEWED PT EXAMINED CASE DISCUSSED WITH ER MD ASHANTI PERAZA/DR GAMING. THIS PATIENT IS A 48 YEAR OLD MALE WHO PRESENTS TO MY OFFICE LAST EVENING WITH A HISTORY OF HAVING AN ELEVATED TEMPERATURE ON A DAILY BASES, ESPECIALLY IN THE EVENINGS/NIGHT TIME, OCC UP TO 104+. HE WAS SEEN APPARENTLY AT A LOCAL "dOC IN A bOX" AND A FEW DAYS LATER HE WAS ALSO EVALUATED AT [facility] AND FOUND TO HAVE A WBC OF 16,000 AND ELEVATED LIVER TESTS. THE PTS BRINGS ME A COPY OF THE [facility] WHERE I FIND HE APPARENTLY HAD POSITIVE BLOOD C/S FOR GRAM NEG RODS-PLEOMORPHIC, DESCRIBED. I IMMEDIATELY CONFIRM THESE FINDINGS WITH [facility] MICROBIOLOGY, [employer] ENGINEER CHIEF SCOTT, WHO CONFIRMED THE FINDINGS, BUT NO IDENTIFICATION EVEN AT THIS POINT IN TIME. CLINCIALLY THE PATIENT DOESN'T LOOK TOXIC BUT WE KNOW LOOKS CAN BE DECEIVING. PMHX: DYSLIPIDEMIA PREDIABETES HTN OBESITY-MILD NOW HE MENTIONS HE HAD A MRSA INFECTION OF HIS RIGHT BUTTOCKS. DENIES ALLERGIES TO MEDS NO RECENT TOBACCO BUT DID SMOKE IN THE PAST. SOCIAL ETOH FAMILY HX OF HTN/DM BORN IN ME, SEXUAL PREFERENCE NOTED. RECENTLY TRAVELED TO ME FOR 3 WEEKS IN DECEMBER OF NOTE: HIS HOME CAT IS ILL AND NOT RESPONDING TO THERAPY. ROS: ABOVE, TEMPS ON A DAILY BASES, UPTO 104 DEGRES DENIES N,V,D,C, HEADACHES, QUESTION OF A FLU LIKE ILLNESS 15-17 DAYS AGO. VSS AWAKE AND ALERT, C/C: OF LIVER SITE PAIN S/P PERCUTANEOUS LIVER ABSCESS DRAINAGE NECK SUPPLE CHEST CLEAR, WITH DECREASED BREATH SOUNDS RIGHT BASE COR [id number]-TSHIHIE ABD ABOVE EXT NO CCE NEURO GROSSLY WNL LABS WBC 16,000-13,000-10,[address]; LOCULATED LIVER ABSCESS, SOURCE TO BE IDENTIFIED MICRO: GRAM NEGATIVE PLEOMORPHIC RODS - FOR THE MYOPIC ILLUMINATI, THE DDX: INCLUDES BUT NOT LIMITED TO: HEMOPHILUS, BORDETELLA, BRUCELLA, PASTERUELLA AND LEGIONELLA! IMPRESSION: 48 YEAR OLD MALE WITH GRAM NEGATIVE BACTEREMIA AND NEW FINDINGS OF A LIVER ABSCESS [id number] IN SIZE- IV ANTIBIOTICS ORDERED INCLUDE ROCEPHIN 2GM IVPB Q 12 AZITHROMYCIN 500MG IVPB OD FLAGYL 500MG IVPB Q 8 HOURS AND NOW SINCE HE MENTIONS MRSA HX, CUBICIN DAILY. AWAITING C/S REPORTS AND SEROLOGIES, MAY NEED FURTHER DRAINAGE SINCE THE REPORT OF THE SCAN MENTIONS LOCULATIONS. WATCH FOR COMPLICATIONS PAIN MANAGEMENTS SEE MY ORDERS AND CLINCIAL MANAGEMENT. ESAU DANIELS MD, FACP Past Patient History - Infectious Disease Hx of Infectious Diseases: None - Past Medical History & Family History Past Medical History?: No Past Family History: Reviewed and not pertinent - Past Social History Smoking Status: Never Smoked Chewing Tobacco Use: No Cigar Use: No Occupation: self employed Alcohol: Occasional Drugs: Denies Home Situation {Lives}: Other - CARDIAC Hx Cardiac Disorders: No Hx Angina: No Hx Atrial Fibrillation: No Hx Cardia Arrhythmia: No Hx Circulatory Problems: No Hx Congestive Heart Failure: No Hx Heart Attack: No Hx Heart Murmur: No Hx Heart Transplant: No Hx Hypercholesterolemia: No Hx Hypertension: No Hx Hypotension: No Hx Internal Defibrillator: No Hx Mitral Valve Prolapse: No Hx Pacemaker: No Hx Peripheral Edema: No Hx Peripheral Vascular Disease: No - PULMONARY Hx Respiratory Disorders: No Hx Asthma: No Hx Bronchitis: No Hx Chronic Obstructive Pulmonary Disease (COPD): No Hx Emphysema: No Hx Lung Cancer: No Hx Pneumonia: No Hx Pulmonary Edema: No Hx Pulmonary Embolism: No Hx Respiratory Aspiration: No Hx Respiratory Tract Infection: No Hx Sleep Apnea: No Hx Tuberculosis: No - NEUROLOGICAL Hx Neurological Disorder: No - HEENT Hx HEENT Problems: No - RENAL Hx Chronic Kidney Disease: No - ENDOCRINE/METABOLIC Hx Diabetes Mellitus Type 2: Yes (pre-diabetic) - HEMATOLOGICAL/ONCOLOGICAL Hx Blood Disorders: No - INTEGUMENTARY Hx Dermatological Problems: No - MUSCULOSKELETAL/RHEUMATOLOGICAL Hx Musculoskeletal Disorders: No Hx Falls: No - GASTROINTESTINAL Hx Gastrointestinal Disorders: No - GENITOURINARY/GYNECOLOGICAL Hx Genitourinary Disorders: No - PSYCHIATRIC Hx Substance Use: No - SURGICAL HISTORY Hx Tonsillectomy: Yes (and uvula removal) - ANESTHESIA Hx Anesthesia: Yes Meds Allergies/Adverse Reactions: Allergies Allergy/AdvReac Type Severity Reaction Status Date / Time No Known Allergies Allergy Verified 08/30/18 18:17 - Medications Medications: Current Medications Docusate Sodium (Colace) 100 mg PO TID [facility] Last Admin: 08/31/18 13:55 Dose: Not Given Heparin Sodium (Porcine) (Heparin) 5,000 units SC Q8 OMI Last Admin: 08/31/18 14:50 Dose: Not Given Ceftriaxone Sodium 1 gm/ (Sodium Chloride) 100 mls @ 100 mls/hr IVPB Q12H OMI; Protocol Last Admin: 08/31/18 10:04 Dose: 100 mls/hr Dextrose/Sodium Chloride (Dextrose 5%/0.45% Ns 1000 Ml) 1,000 mls @ 100 mls/hr IV .Q10H OMI Last Admin: 08/31/18 16:46 Dose: Not Given Metronidazole (Flagyl) 500 mg in 100 mls @ 100 mls/hr IVPB Q8H OMI; Protocol Stop: 09/01/18 15:29 Last Admin: 08/31/18 13:48 Dose: 100 mls/hr Azithromycin 500 mg/ Sodium (Chloride) 250 mls @ 250 mls/hr IVPB 0900 OMI; Protocol Morphine Sulfate (Morphine) 2 mg IVP Q6 PRN PRN Reason: Pain, severe (8-10) Last Admin: 08/31/18 13:45 Dose: 2 mg Pantoprazole Sodium (Protonix Inj) 40 mg IVP DAILY [facility] Last Admin: 08/31/18 10:03 Dose: 40 mg Phytonadione (Vitamin K Tab) 5 mg PO ONCE ONE Stop: 08/31/18 22:57 Pneumococcal Polyvalent Vaccine (Pneumovax 23 Vaccine) 0.5 ml IM .ONCE ONE Stop: 09/03/18 10:01 Results - Vital Signs Recent Vital Signs: Last Vital Signs Temp 98.3 F 08/31/18 16:10 Pulse 96 H 08/31/18 16:10 Resp 20 08/31/18 16:10 BP 138/83 08/31/18 16:10 Pulse Ox 95 08/31/18 16:10 - Labs Result Diagrams: 09/01/18 10:56 09/01/18 10:56 Labs: Laboratory Results - last 24 hr 08/30/18 08/30/18 08/30/18 12:47 18:30 19:29 WBC 13.7 H RBC 4.43 Hgb 13.1 Hct 40.9 MCV 92.4 MCH 29.7 MCHC 32.1 L RDW 14.2 Plt Count 583 H MPV 7.4 Neut % (Auto) 74.9 Lymph % (Auto) 14.6 L Island % (Auto) 9.8 Eos % (Auto) 0.3 Baso % (Auto) 0.4 Neut # (Auto) 10.3 H Lymph # (Auto) 2.0 Island # (Auto) 1.3 H Eos # (Auto) 0.0 Baso # (Auto) 0.0 ESR PT INR APTT pO2 VBG pH VBG pCO2 VBG HCO3 VBG Total CO2 VBG O2 Sat (Calc) VBG Base Excess VBG Potassium Glucose Lactate Sodium Potassium Chloride Carbon Dioxide Anion Gap BUN Creatinine Est GFR ( Amer) Est GFR (Non-Af Amer) POC Glucose (mg/dL) Random Glucose Calcium Phosphorus Magnesium Total Bilirubin AST ALT Alkaline Phosphatase C-React Prot High Sens Total Protein Albumin Globulin Albumin/Globulin Ratio Procalcitonin 4.13 H Venous Blood Potassium Urine Color Urine Clarity Urine pH Ur Specific [place] Urine Protein Urine Glucose (UA) Urine Ketones Urine Blood Urine Nitrate Urine Bilirubin Urine Urobilinogen Ur Leukocyte Esterase Urine WBC (Auto) Urine RBC (Auto) Hep Bs Antigen Hep Bs Antibody Ur L.pneumophila Ag Negative 08/30/18 08/30/18 08/30/18 19:29 19:29 19:29 WBC RBC Hgb Hct MCV MCH MCHC RDW Plt Count MPV Neut % (Auto) Lymph % (Auto) Island % (Auto) Eos % (Auto) Baso % (Auto) Neut # (Auto) Lymph # (Auto) Island # (Auto) Eos # (Auto) Baso # (Auto) ESR PT 17.1 H INR 1.6 APTT 33 pO2 VBG pH VBG pCO2 VBG HCO3 VBG Total CO2 VBG O2 Sat (Calc) VBG Base Excess VBG Potassium Glucose Lactate Sodium 137 Potassium 3.8 Chloride 95 L Carbon Dioxide 29 Anion Gap 17 BUN 10 Creatinine 0.9 Est GFR ( Amer) > 60 Est GFR (Non-Af Amer) > 60 POC Glucose (mg/dL) Random Glucose 145 H Calcium 9.4 Phosphorus 3.9 Magnesium 2.1 Total Bilirubin 0.8 AST 57 ALT 73 H Alkaline Phosphatase 162 H C-React Prot High Sens > 15.00 H Total Protein 9.6 H Albumin 4.5 Globulin 5.2 H Albumin/Globulin Ratio 0.9 L Procalcitonin Venous Blood Potassium Urine Color Urine Clarity Urine pH Ur Specific [place] Urine Protein Urine Glucose (UA) Urine Ketones Urine Blood Urine Nitrate Urine Bilirubin Urine Urobilinogen Ur Leukocyte Esterase Urine WBC (Auto) Urine RBC (Auto) Hep Bs Antigen Hep Bs Antibody Ur L.pneumophila Ag 08/30/18 08/30/18 08/30/18 19:32 22:05 22:05 WBC RBC Hgb Hct MCV MCH MCHC RDW Plt Count MPV Neut % (Auto) Lymph % (Auto) Island % (Auto) Eos % (Auto) Baso % (Auto) Neut # (Auto) Lymph # (Auto) Island # (Auto) Eos # (Auto) Baso # (Auto) ESR 112 H PT INR APTT pO2 16 L VBG pH 7.37 VBG pCO2 51 VBG HCO3 25.3 VBG Total CO2 31.1 H VBG O2 Sat (Calc) 22.0 L VBG Base Excess 3.1 H VBG Potassium 4.0 Glucose 141 H Lactate 1.6 Sodium 137.0 Potassium Chloride 101.0 Carbon Dioxide Anion Gap BUN Creatinine Est GFR ( Amer) Est GFR (Non-Af Amer) POC Glucose (mg/dL) Random Glucose Calcium Phosphorus Magnesium Total Bilirubin AST ALT Alkaline Phosphatase C-React Prot High Sens Total Protein Albumin Globulin Albumin/Globulin Ratio Procalcitonin Venous Blood Potassium 4.0 Urine Color Urine Clarity Urine pH Ur Specific [place] Urine Protein Urine Glucose (UA) Urine Ketones Urine Blood Urine Nitrate Urine Bilirubin Urine Urobilinogen Ur Leukocyte Esterase Urine WBC (Auto) Urine RBC (Auto) Hep Bs Antigen Negative Hep Bs Antibody Ur L.pneumophila Ag 08/30/18 08/30/18 08/30/18 22:05 23:13 23:23 WBC RBC Hgb Hct MCV MCH MCHC RDW Plt Count MPV Neut % (Auto) Lymph % (Auto) Island % (Auto) Eos % (Auto) Baso % (Auto) Neut # (Auto) Lymph # (Auto) Island # (Auto) Eos # (Auto) Baso # (Auto) ESR PT INR APTT pO2 VBG pH VBG pCO2 VBG HCO3 VBG Total CO2 VBG O2 Sat (Calc) VBG Base Excess VBG Potassium Glucose Lactate Sodium Potassium Chloride Carbon Dioxide Anion Gap BUN Creatinine Est GFR ( Amer) Est GFR (Non-Af Amer) POC Glucose (mg/dL) 196 H Random Glucose Calcium Phosphorus Magnesium Total Bilirubin AST ALT Alkaline Phosphatase C-React Prot High Sens Total Protein Albumin Globulin Albumin/Globulin Ratio Procalcitonin Venous Blood Potassium Urine Color Yellow Urine Clarity Clear Urine pH 5.0 Ur Specific [place] 1.042 H Urine Protein 1+ H Urine Glucose (UA) Normal Urine Ketones Negative Urine Blood Negative Urine Nitrate Negative Urine Bilirubin Negative Urine Urobilinogen Normal Ur Leukocyte Esterase Neg Urine WBC (Auto) 2 Urine RBC (Auto) 1 Hep Bs Antigen Hep Bs Antibody Positive Ur L.pneumophila Ag 08/31/18 08/31/18 08/31/18 06:21 06:21 11:28 WBC 10.7 RBC 3.72 L Hgb 11.6 L Hct 34.1 L MCV 91.6 MCH 31.2 H MCHC 34.1 RDW 14.0 Plt Count 472 H D MPV 7.0 L Neut % (Auto) 67.7 Lymph % (Auto) 19.6 L Island % (Auto) 11.8 H Eos % (Auto) 0.4 Baso % (Auto) 0.5 Neut # (Auto) 7.2 H Lymph # (Auto) 2.1 Island # (Auto) 1.3 H Eos # (Auto) 0.0 Baso # (Auto) 0.1 ESR PT INR APTT pO2 VBG pH VBG pCO2 VBG HCO3 VBG Total CO2 VBG O2 Sat (Calc) VBG Base Excess VBG Potassium Glucose Lactate Sodium 134 Potassium 4.3 Chloride 97 L Carbon Dioxide 30 Anion Gap 12 BUN 9 Creatinine 0.9 Est GFR ( Amer) > 60 Est GFR (Non-Af Amer) > 60 POC Glucose (mg/dL) 152 H Random Glucose 136 H Calcium 8.7 Phosphorus Magnesium Total Bilirubin 0.7 AST 60 H ALT 75 H Alkaline Phosphatase 134 H C-React Prot High Sens Total Protein 8.2 Albumin 3.9 Globulin 4.3 H Albumin/Globulin Ratio 0.9 L Procalcitonin Venous Blood Potassium Urine Color Urine Clarity Urine pH Ur Specific [place] Urine Protein Urine Glucose (UA) Urine Ketones Urine Blood Urine Nitrate Urine Bilirubin Urine Urobilinogen Ur Leukocyte Esterase Urine WBC (Auto) Urine RBC (Auto) Hep Bs Antigen Hep Bs Antibody Ur L.pneumophila Ag 08/31/18 16:30 WBC RBC Hgb Hct MCV MCH MCHC RDW Plt Count MPV Neut % (Auto) Lymph % (Auto) Island % (Auto) Eos % (Auto) Baso % (Auto) Neut # (Auto) Lymph # (Auto) Island # (Auto) Eos # (Auto) Baso # (Auto) ESR PT INR APTT pO2 VBG pH VBG pCO2 VBG HCO3 VBG Total CO2 VBG O2 Sat (Calc) VBG Base Excess VBG Potassium Glucose Lactate Sodium Potassium Chloride Carbon Dioxide Anion Gap BUN Creatinine Est GFR ( Amer) Est GFR (Non-Af Amer) POC Glucose (mg/dL) 174 H Random Glucose Calcium Phosphorus Magnesium Total Bilirubin AST ALT Alkaline Phosphatase C-React Prot High Sens Total Protein Albumin Globulin Albumin/Globulin Ratio Procalcitonin Venous Blood Potassium Urine Color Urine Clarity Urine pH Ur Specific [place] Urine Protein Urine Glucose (UA) Urine Ketones Urine Blood Urine Nitrate Urine Bilirubin Urine Urobilinogen Ur Leukocyte Esterase Urine WBC (Auto) Urine RBC (Auto) Hep Bs Antigen Hep Bs Antibody Ur L.pneumophila Ag
[2018-08-31] MEDS: cefTRIAXone 2 GM in Sodium Chloride 0.9% 100 ML IVPB SCH (19:00)
[2018-08-31] MEDS ORDERED: Oxycodone/Acetaminophen 5/325 mg Tab PO PRN (19:29)
[2018-08-31] MEDS: DAPTOmycin 500 MG in Sodium Chloride 0.9% 100 ML IV SCH (19:39)
[2018-08-31] MEDS ORDERED: Phytonadione 2.5 MG/0.5 TAB TAB PO ONE (22:56)
[2018-09-01] MEDS: Dextrose 5%/0.45% NS 1,000 ML IV SCH ×3 (02:49→17:39)
[2018-09-01] MEDS: metroNIDAZOLE IV 500 mg/100 ml 500 MG/100 ML BAG IVPB SCH ×3 (02:49→21:23)
[2018-09-01] MEDS: cefTRIAXone 2 GM in Sodium Chloride 0.9% 100 ML IVPB SCH ×2 (05:53→17:45)
[2018-09-01] MEDS ORDERED: Azithromycin 500 MG in Sodium Chloride 0.9% 250 ML IVPB SCH (09:00)
--- NOTE | 2018-09-01 09:17 | CP.PCM.PN ---
<Raymond Jacobs - Last Filed: 09/01/18 09:14> Subjective - Date & Time of Evaluation Date of Evaluation: 09/01/18 Time of Evaluation: 07:10 - Subjective Subjective: HPB Surgery Pt seen and examined. No acute events overnight. Afebrile. ~60cc thick sanguinous fluid output. Complains of mild pain at tube site worse with movement. Objective - Vital Signs/Intake and Output Vital Signs (last 24 hours): Temp Pulse Resp BP Pulse Ox 98.6 F 87 20 142/91 H 95 09/01/18 07:30 09/01/18 07:30 09/01/18 07:30 09/01/18 07:30 09/01/18 07:30 Intake and Output: 09/01/18 09/01/18 06:59 18:59 Intake Total 1900 Output Total 1550 Balance 350 - Medications Medications: Current Medications Docusate Sodium (Colace) 100 mg PO TID OMI Last Admin: 09/01/18 09:02 Dose: 100 mg Heparin Sodium (Porcine) (Heparin) 5,000 units SC Q8 OMI Last Admin: 09/01/18 05:19 Dose: 5,000 units Dextrose/Sodium Chloride (Dextrose 5%/0.45% Ns 1000 Ml) 1,000 mls @ 100 mls/hr IV .Q10H OMI Last Admin: 09/01/18 05:20 Dose: 100 mls/hr Azithromycin 500 mg/ Sodium (Chloride) 250 mls @ 250 mls/hr IVPB 0900 OMI; Protocol Last Admin: 09/01/18 09:03 Dose: 250 mls/hr Ceftriaxone Sodium 2 gm/ (Sodium Chloride) 100 mls @ 100 mls/hr IVPB Q12H OMI; Protocol Last Admin: 09/01/18 05:53 Dose: 100 mls/hr Metronidazole (Flagyl) 500 mg in 100 mls @ 100 mls/hr IVPB Q8H OMI; Protocol Last Admin: 09/01/18 02:49 Dose: 100 mls/hr Daptomycin 500 mg/ Sodium (Chloride) 100 mls @ 100 mls/hr IV Q24H OMI; Protocol Stop: 09/05/18 19:01 Last Admin: 08/31/18 19:39 Dose: 100 mls/hr Morphine Sulfate (Morphine) 2 mg IVP Q4 PRN Last Admin: 08/31/18 21:30 Dose: 2 mg Pantoprazole Sodium (Protonix Inj) 40 mg IVP DAILY [facility] Last Admin: 09/01/18 09:02 Dose: 40 mg Pneumococcal Polyvalent Vaccine (Pneumovax 23 Vaccine) 0.5 ml IM .ONCE ONE Stop: 09/03/18 10:01 - Labs Labs: 08/31/18 06:21 08/31/18 06:21 PT 17.1 SECONDS (9.7-12.2) H 08/30/18 19:29 INR 1.6 08/30/18 19:29 APTT 33 SECONDS (21-34) 08/30/18 19:29 - Constitutional Appears: Non-toxic, No Acute Distress - Head Exam Head Exam: ATRAUMATIC, NORMOCEPHALIC - Eye Exam Eye Exam: EOMI. absent: Scleral icterus - Respiratory Exam Respiratory Exam: NORMAL BREATHING PATTERN. absent: Respiratory Distress - GI/Abdominal Exam GI & Abdominal Exam: Soft, Rebound. absent: Distended, Firm, Guarding, Rigid, Tenderness Additional comments: R lateral IR drain in place, mild TTp at site - Extremities Exam Extremities Exam: absent: Calf Tenderness, Pedal Edema - Neurological Exam Neurological Exam: Alert, Awake, Oriented x3 - Skin Skin Exam: Dry, Warm Assessment and Plan - Assessment and Plan (Free Text) Assessment: 48M with Hepatic abscess Plan: Follow up Cultures and monitor drainage. Continue Abx D/W Dr. Zepeda PGY4 <Kevin Tim - Last Filed: 09/03/18 14:28> Objective - Vital Signs/Intake and Output Vital Signs (last 24 hours): Temp Pulse Resp BP Pulse Ox 97.2 F L 97 H 20 127/95 H 96 09/03/18 08:00 09/03/18 08:00 09/03/18 08:00 09/03/18 08:00 09/03/18 08:00 Intake and Output: 09/03/18 09/03/18 06:59 18:59 Intake Total 1100 Balance 1100 - Medications Medications: Current Medications Docusate Sodium (Colace) 100 mg PO TID [facility] Last Admin: 09/03/18 13:36 Dose: 100 mg Heparin Sodium (Porcine) (Heparin) 5,000 units SC Q8 [facility] Last Admin: 09/03/18 13:36 Dose: 5,000 units Ceftriaxone Sodium 2 gm/ (Sodium Chloride) 100 mls @ 100 mls/hr IVPB Q12H OMI; Protocol Last Admin: 09/03/18 05:53 Dose: 100 mls/hr Metronidazole (Flagyl) 500 mg in 100 mls @ 100 mls/hr IVPB Q8H OMI; Protocol Last Admin: 09/03/18 10:17 Dose: 100 mls/hr Daptomycin 500 mg/ Sodium (Chloride) 100 mls @ 100 mls/hr IV 2100 OMI; Protocol Stop: 09/05/18 19:01 Last Admin: 09/02/18 20:43 Dose: 100 mls/hr Morphine Sulfate (Morphine) 2 mg IVP Q4 PRN Last Admin: 08/31/18 21:30 Dose: 2 mg Pantoprazole Sodium (Protonix Inj) 40 mg IVP DAILY [facility] Last Admin: 09/03/18 10:03 Dose: 40 mg - Labs Labs: 09/03/18 07:12 09/03/18 07:12 PT 17.1 SECONDS (9.7-12.2) H 08/30/18 19:29 INR 1.6 08/30/18 19:29 APTT 33 SECONDS (21-34) 08/30/18 19:29 Assessment and Plan (1) Fever Status: Acute (2) Hepatic abscess Status: Acute
[2018-09-01 11:12] LABS: BASO # 0.1 K/uL (0.0-0.2); BASO % 0.7 % (0.0-2.0); EOS # 0.1 K/uL (0.0-0.7); EOS % 1.6 % (0.0-4.0); HEMOGLOBIN 12.6 g/dL (12.0-18.0); LYMPH # 1.4 K/uL (1.0-4.3); LYMPH % 17.3 % (20.0-40.0); MEAN CELL VOLUME 92.2 fL (80.0-94.0); MEAN CORPUSCULAR HGB CONC 33.6 g/dL (33.0-37.0); MEAN PLATELET VOLUME 7.4 fL (7.2-11.7); MONO # 0.7 K/uL (0.0-0.8); MONO % 9.1 % (0.0-10.0); NEUT # 5.7 K/uL (1.8-7.0); NEUT % 71.3 % (50.0-75.0); RBC 4.06 Mil/uL (4.40-5.90); RED CELL DISTRIBUTION WIDTH 13.8 % (11.5-14.5)
[2018-09-01 11:21] LABS: ALB/GLOB RATIO 0.9 (1.0-2.1); ALBUMIN 3.8 g/dL (3.5-5.0); ALT/SGPT 57 U/L (21-72); AST/SGOT 39 U/L (17-59); BLOOD UREA NITROGEN 6 mg/dL (9-20); CALCIUM 8.8 mg/dl (8.6-10.4); GFR NON-AFRICAN AMERICAN > 60
--- NOTE | 2018-09-01 12:12 | CP.PCM.PN ---
Subjective - Date & Time of Evaluation Date of Evaluation: 09/01/18 Time of Evaluation: 12:07 - Subjective Subjective: INFECTIOUS DISEASE PROGRESS NOTES ESAU DANIELS MD, FACP 5T 557-B 09/01/2018 CASE DISCUSSED WITH NORMAN SANTANA CHART REVIEWED CLINICALLY AND LAB [place] THIS IS THE FIRST 36-48HOURS OF IMPROVEMENT, ESPECIALLY POST LIVER ASPIRATION. LESS PAIN POST PROCEDURE COMPARED TO LAST NIGHT CBC AND H/H MORE STABLE NO C/S YET IDENTIFIED, EVEN FROM THE ABSCESS ITSELF. TO CONTINUE MEDS ORDERED, TO FOLLOW CAREFULLY AND WITH FOCUSED ATTENTION. WOULD LIKE TO TALK TO DR LUNA. 09/01/2018 2nd visit of the day: c/s still not avaialble HIV NEGATIVE HEP C NEG HEP S AB + SYPHILIS CONFIRMATORY TEST REPORTED +, BUT RPR STILL PENDING. FEELING BETTER, UP TODAY! ESAU DANIELS MD, FACP Objective - Vital Signs/Intake and Output Vital Signs (last 24 hours): Temp Pulse Resp BP Pulse Ox 98.6 F 87 20 142/91 H 95 09/01/18 07:30 09/01/18 07:30 09/01/18 07:30 09/01/18 07:30 09/01/18 07:30 Intake and Output: 09/01/18 09/01/18 06:59 18:59 Intake Total 1900 Output Total 1550 Balance 350 - Medications Medications: Current Medications Docusate Sodium (Colace) 100 mg PO TID [facility] Last Admin: 09/01/18 09:02 Dose: 100 mg Heparin Sodium (Porcine) (Heparin) 5,000 units SC Q8 [facility] Last Admin: 09/01/18 05:19 Dose: 5,000 units Dextrose/Sodium Chloride (Dextrose 5%/0.45% Ns 1000 Ml) 1,000 mls @ 100 mls/hr IV .Q10H [facility] Last Admin: 09/01/18 05:20 Dose: 100 mls/hr Azithromycin 500 mg/ Sodium (Chloride) 250 mls @ 250 mls/hr IVPB 0900 [facility]; Protocol Last Admin: 09/01/18 09:03 Dose: 250 mls/hr Ceftriaxone Sodium 2 gm/ (Sodium Chloride) 100 mls @ 100 mls/hr IVPB Q12H [facility]; Protocol Last Admin: 09/01/18 05:53 Dose: 100 mls/hr Metronidazole (Flagyl) 500 mg in 100 mls @ 100 mls/hr IVPB Q8H OMI; Protocol Last Admin: 09/01/18 10:50 Dose: 100 mls/hr Daptomycin 500 mg/ Sodium (Chloride) 100 mls @ 100 mls/hr IV Q24H OMI; Protocol Stop: 09/05/18 19:01 Last Admin: 08/31/18 19:39 Dose: 100 mls/hr Morphine Sulfate (Morphine) 2 mg IVP Q4 PRN Last Admin: 08/31/18 21:30 Dose: 2 mg Pantoprazole Sodium (Protonix Inj) 40 mg IVP DAILY [facility] Last Admin: 09/01/18 09:02 Dose: 40 mg Pneumococcal Polyvalent Vaccine (Pneumovax 23 Vaccine) 0.5 ml IM .ONCE ONE Stop: 09/03/18 10:01 - Labs Labs: 09/01/18 10:56 09/01/18 10:56 PT 17.1 SECONDS (9.7-12.2) H 08/30/18 19:29 INR 1.6 08/30/18 19:29 APTT 33 SECONDS (21-34) 08/30/18 19:29
[2018-09-01] MEDS: DAPTOmycin 500 MG in Sodium Chloride 0.9% 100 ML IV SCH (21:22)
[2018-09-02] MEDS: metroNIDAZOLE IV 500 mg/100 ml 500 MG/100 ML BAG IVPB SCH ×3 (02:03→18:47)
[2018-09-02] MEDS: cefTRIAXone 2 GM in Sodium Chloride 0.9% 100 ML IVPB SCH ×2 (06:46→17:49)
[2018-09-02] MEDS: Dextrose 5%/0.45% NS 1,000 ML IV SCH ×3 (08:20→18:48)
--- NOTE | 2018-09-02 09:00 | CP.PCM.PN ---
<Raymond Jacobs - Last Filed: 09/02/18 08:57> Subjective - Date & Time of Evaluation Date of Evaluation: 09/02/18 Time of Evaluation: 06:55 - Subjective Subjective: HPB Surgery Pt seen and examined. No acute events overnight. Awaiting Cultures. Minimal drainage. No complaints at this time. Objective - Vital Signs/Intake and Output Vital Signs (last 24 hours): Temp Pulse Resp BP Pulse Ox 97.9 F 106 H 20 140/95 H 95 09/02/18 08:12 09/02/18 08:12 09/02/18 08:12 09/02/18 08:12 09/02/18 08:12 Intake and Output: 09/02/18 09/02/18 06:59 18:59 Intake Total 1200 800 Output Total 30 Balance 1170 800 - Medications Medications: Current Medications Docusate Sodium (Colace) 100 mg PO TID [facility] Last Admin: 09/01/18 17:39 Dose: 100 mg Heparin Sodium (Porcine) (Heparin) 5,000 units SC Q8 OMI Last Admin: 09/02/18 05:39 Dose: 5,000 units Dextrose/Sodium Chloride (Dextrose 5%/0.45% Ns 1000 Ml) 1,000 mls @ 100 mls/hr IV .Q10H OMI Last Admin: 09/01/18 17:39 Dose: 100 mls/hr Ceftriaxone Sodium 2 gm/ (Sodium Chloride) 100 mls @ 100 mls/hr IVPB Q12H OMI; Protocol Last Admin: 09/02/18 06:46 Dose: 100 mls/hr Metronidazole (Flagyl) 500 mg in 100 mls @ 100 mls/hr IVPB Q8H OMI; Protocol Last Admin: 09/02/18 02:03 Dose: 100 mls/hr Daptomycin 500 mg/ Sodium (Chloride) 100 mls @ 100 mls/hr IV Q24H OMI; Protocol Stop: 09/05/18 19:01 Last Admin: 09/01/18 21:22 Dose: 100 mls/hr Morphine Sulfate (Morphine) 2 mg IVP Q4 PRN Last Admin: 08/31/18 21:30 Dose: 2 mg Pantoprazole Sodium (Protonix Inj) 40 mg IVP DAILY [facility] Last Admin: 09/01/18 09:02 Dose: 40 mg Pneumococcal Polyvalent Vaccine (Pneumovax 23 Vaccine) 0.5 ml IM .ONCE ONE Stop: 09/03/18 10:01 - Labs Labs: 09/01/18 10:56 09/01/18 10:56 PT 17.1 SECONDS (9.7-12.2) H 08/30/18 19:29 INR 1.6 08/30/18 19:29 APTT 33 SECONDS (21-34) 08/30/18 19:29 - Constitutional Appears: Non-toxic, No Acute Distress - Head Exam Head Exam: ATRAUMATIC, NORMOCEPHALIC - Eye Exam Eye Exam: EOMI. absent: Scleral icterus - Respiratory Exam Respiratory Exam: NORMAL BREATHING PATTERN. absent: Respiratory Distress - GI/Abdominal Exam GI & Abdominal Exam: Soft. absent: Distended, Tenderness Additional comments: drain in RUQ/R flank, minimal sanguinous drainage - Neurological Exam Neurological Exam: Alert, Awake - Skin Skin Exam: Dry, Warm Assessment and Plan - Assessment and Plan (Free Text) Assessment: 48M with Hepatic abscess of unknown origin Plan: Follow up Cultures and monitor drainage. Continue Abx D/W Dr. Zepeda PGY4 <Kevin Tim - Last Filed: 09/04/18 17:12> Objective - Vital Signs/Intake and Output Vital Signs (last 24 hours): Temp Pulse Resp BP Pulse Ox 97.8 F 88 20 132/91 H 97 09/04/18 16:00 09/04/18 16:00 09/04/18 16:00 09/04/18 16:00 09/04/18 16:00 Intake and Output: 09/04/18 09/04/18 06:59 18:59 Output Total 0 5 Balance 0 -5 - Medications Medications: Current Medications Docusate Sodium (Colace) 100 mg PO TID [facility] Last Admin: 09/04/18 15:31 Dose: 100 mg Heparin Sodium (Porcine) (Heparin) 5,000 units SC Q8 OMI Last Admin: 09/04/18 15:30 Dose: 5,000 units Metronidazole (Flagyl) 500 mg in 100 mls @ 100 mls/hr IVPB Q8H [facility]; Protocol Last Admin: 09/04/18 12:27 Dose: 100 mls/hr Ceftriaxone Sodium 2 gm/ (Sodium Chloride) 100 mls @ 100 mls/hr IVPB DAILY O[facility]; Protocol Last Admin: 09/04/18 10:40 Dose: 100 mls/hr Morphine Sulfate (Morphine) 2 mg IVP Q4 PRN Last Admin: 08/31/18 21:30 Dose: 2 mg Pantoprazole Sodium (Protonix Ec Tab) 40 mg PO DAILY OMI - Labs Labs: 09/03/18 07:12 09/03/18 07:12 PT 17.1 SECONDS (9.7-12.2) H 08/30/18 19:29 INR 1.6 08/30/18 19:29 APTT 33 SECONDS (21-34) 08/30/18 19:29 Assessment and Plan (1) Fever Status: Acute (2) Hepatic abscess Status: Acute - Assessment and Plan (Free Text) Assessment: Improved, feels better. Continue IV antibiotics. Await culture results
--- NOTE | 2018-09-02 12:33 | CP.PCM.PN ---
Subjective - Date & Time of Evaluation Date of Evaluation: 09/02/18 Time of Evaluation: 12:29 - Subjective Subjective: INFECTIOUS DISEASE PROGRESS NOTES ESAU DANIELS MD, FACP 09/02/2018 5T 557 CHART REVIEWED CASE DISCUSSED CLINICALLY STILL AFEBRILE AND LESS PAIN FROM THE CATH SITE C/S STILL NEGATIVE THE COUPLE TELL ME THAT BARRON HAD SYPHILIS MANY YEARS AGO-17 OR SO, AWAITING FOR THE RPR DISCONTINUED THE ZITHROMAX ON CUBICIN, FLAGYL AND ROCEPHIN-HIGH DOSE, PLEASE ALERT ME TO ANY CHANGES IN ANTIBIOTICS. Objective - Vital Signs/Intake and Output Vital Signs (last 24 hours): Temp Pulse Resp BP Pulse Ox 97.9 F 106 H 20 140/95 H 95 09/02/18 08:12 09/02/18 08:12 09/02/18 08:12 09/02/18 08:12 09/02/18 08:12 Intake and Output: 09/02/18 09/02/18 06:59 18:59 Intake Total 1200 800 Output Total 30 Balance 1170 800 - Medications Medications: Current Medications Docusate Sodium (Colace) 100 mg PO TID OMI Last Admin: 09/02/18 09:54 Dose: 100 mg Heparin Sodium (Porcine) (Heparin) 5,000 units SC Q8 OMI Last Admin: 09/02/18 05:39 Dose: 5,000 units Dextrose/Sodium Chloride (Dextrose 5%/0.45% Ns 1000 Ml) 1,000 mls @ 100 mls/hr IV .Q10H OMI Last Admin: 09/02/18 09:54 Dose: 100 mls/hr Ceftriaxone Sodium 2 gm/ (Sodium Chloride) 100 mls @ 100 mls/hr IVPB Q12H OMI; Protocol Last Admin: 09/02/18 06:46 Dose: 100 mls/hr Metronidazole (Flagyl) 500 mg in 100 mls @ 100 mls/hr IVPB Q8H OMI; Protocol Last Admin: 09/02/18 10:28 Dose: 100 mls/hr Daptomycin 500 mg/ Sodium (Chloride) 100 mls @ 100 mls/hr IV Q24H OMI; Protocol Stop: 09/05/18 19:01 Last Admin: 09/01/18 21:22 Dose: 100 mls/hr Morphine Sulfate (Morphine) 2 mg IVP Q4 PRN Last Admin: 08/31/18 21:30 Dose: 2 mg Pantoprazole Sodium (Protonix Inj) 40 mg IVP DAILY OMI Last Admin: 09/02/18 09:53 Dose: 40 mg Pneumococcal Polyvalent Vaccine (Pneumovax 23 Vaccine) 0.5 ml IM .ONCE ONE Stop: 09/03/18 10:01 - Labs Labs: 09/01/18 10:56 09/01/18 10:56 PT 17.1 SECONDS (9.7-12.2) H 08/30/18 19:29 INR 1.6 08/30/18 19:29 APTT 33 SECONDS (21-34) 08/30/18 19:29
[2018-09-02] MEDS ORDERED: DAPTOmycin 500 MG in Sodium Chloride 0.9% 100 ML IV SCH (21:00)
[2018-09-03] MEDS: Dextrose 5%/0.45% NS 1,000 ML IV SCH (01:49)
[2018-09-03] MEDS: metroNIDAZOLE IV 500 mg/100 ml 500 MG/100 ML BAG IVPB SCH ×3 (02:27→18:22)
[2018-09-03] MEDS: cefTRIAXone 2 GM in Sodium Chloride 0.9% 100 ML IVPB SCH (05:53)
[2018-09-03 07:24] LABS: BASO # 0.1 K/uL (0.0-0.2); BASO % 0.9 % (0.0-2.0); EOS # 0.2 K/uL (0.0-0.7); EOS % 3.2 % (0.0-4.0); HEMOGLOBIN 11.5 g/dL (12.0-18.0); LYMPH # 1.8 K/uL (1.0-4.3); LYMPH % 30.3 % (20.0-40.0); MEAN CELL VOLUME 92.4 fL (80.0-94.0); MEAN CORPUSCULAR HGB CONC 33.5 g/dL (33.0-37.0); MEAN PLATELET VOLUME 7.1 fL (7.2-11.7); MONO # 0.6 K/uL (0.0-0.8); MONO % 9.5 % (0.0-10.0); NEUT # 3.4 K/uL (1.8-7.0); NEUT % 56.1 % (50.0-75.0); NRBC % 0.1 % (0.0-2.0); RBC 3.72 Mil/uL (4.40-5.90); RED CELL DISTRIBUTION WIDTH 13.8 % (11.5-14.5); WHITE BLOOD COUNT 6.1 K/uL (4.8-10.8)
[2018-09-03 07:43] LABS: ALBUMIN 3.3 g/dL (3.5-5.0); ALT/SGPT 65 U/L (21-72); AST/SGOT 68 U/L (17-59); BLOOD UREA NITROGEN 6 mg/dL (9-20); CALCIUM 8.4 mg/dl (8.6-10.4); GFR NON-AFRICAN AMERICAN > 60
[2018-09-03] MEDS ORDERED: Pneumococcal 23-Valent Vaccine IM ONE (10:00)
--- NOTE | 2018-09-03 11:25 | CP.PCM.PN ---
<Chong Ambrose - Last Filed: 09/03/18 16:35> Subjective - Date & Time of Evaluation Date of Evaluation: 09/03/18 Time of Evaluation: 07:10 - Subjective Subjective: Surgery Progress note. Dr. Brown Pt seen and examined at bedside. No acute events overnight. No Fevers or chills. No new complaints. No Abd pain. No N/V/D. Cultures with no growth to date so far. Objective - Vital Signs/Intake and Output Vital Signs (last 24 hours): Temp Pulse Resp BP Pulse Ox 97.2 F L 97 H 20 127/95 H 96 09/03/18 08:00 09/03/18 08:00 09/03/18 08:00 09/03/18 08:00 09/03/18 08:00 Intake and Output: 09/03/18 09/03/18 06:59 18:59 Intake Total 1100 Balance 1100 - Medications Medications: Current Medications Docusate Sodium (Colace) 100 mg PO TID OMI Last Admin: 09/03/18 10:03 Dose: 100 mg Heparin Sodium (Porcine) (Heparin) 5,000 units SC Q8 OMI Last Admin: 09/03/18 05:04 Dose: 5,000 units Ceftriaxone Sodium 2 gm/ (Sodium Chloride) 100 mls @ 100 mls/hr IVPB Q12H OMI; Protocol Last Admin: 09/03/18 05:53 Dose: 100 mls/hr Metronidazole (Flagyl) 500 mg in 100 mls @ 100 mls/hr IVPB Q8H OMI; Protocol Last Admin: 09/03/18 10:17 Dose: 100 mls/hr Daptomycin 500 mg/ Sodium (Chloride) 100 mls @ 100 mls/hr IV 2100 OMI; Protocol Stop: 09/05/18 19:01 Last Admin: 09/02/18 20:43 Dose: 100 mls/hr Morphine Sulfate (Morphine) 2 mg IVP Q4 PRN Last Admin: 08/31/18 21:30 Dose: 2 mg Pantoprazole Sodium (Protonix Inj) 40 mg IVP DAILY OMI Last Admin: 09/03/18 10:03 Dose: 40 mg - Labs Labs: 09/03/18 07:12 09/03/18 07:12 PT 17.1 SECONDS (9.7-12.2) H 08/30/18 19:29 INR 1.6 08/30/18 19:29 APTT 33 SECONDS (21-34) 08/30/18 19:29 - Constitutional Appears: Well, Non-toxic, No Acute Distress - Head Exam Head Exam: ATRAUMATIC, NORMAL INSPECTION, NORMOCEPHALIC - Eye Exam Eye Exam: EOMI, Normal appearance. absent: Scleral icterus - ENT Exam ENT Exam: Mucous Membranes Moist - Respiratory Exam Respiratory Exam: NORMAL BREATHING PATTERN. absent: Accessory Muscle Use, Respiratory Distress - Cardiovascular Exam Cardiovascular Exam: RRR. absent: JVD - GI/Abdominal Exam GI & Abdominal Exam: Soft. absent: Distended, Firm, Guarding, Rigid, Rebound Additional comments: Right Abdomen IR drain in place - Extremities Exam Extremities Exam: Normal Inspection. absent: Calf Tenderness - Neurological Exam Neurological Exam: Alert, Awake, Oriented x3 - Psychiatric Exam Psychiatric exam: Normal Affect, Normal Mood - Skin Skin Exam: Dry, Intact, Normal Color, Warm Assessment and Plan - Assessment and Plan (Free Text) Assessment: 48yo M w hepatic abscess s/p IR drain placed on 08/31/18 Plan: - f/u cultures - Continue ABx as per ID Further recs as per Dr. Meeta Ambrose PGY2 surgery <Kevin Tim - Last Filed: 09/04/18 17:09> Objective - Vital Signs/Intake and Output Vital Signs (last 24 hours): Temp Pulse Resp BP Pulse Ox 97.8 F 88 20 132/91 H 97 09/04/18 16:00 09/04/18 16:00 09/04/18 16:00 09/04/18 16:00 09/04/18 16:00 Intake and Output: 09/04/18 09/04/18 06:59 18:59 Output Total 0 5 Balance 0 -5 - Medications Medications: Current Medications Docusate Sodium (Colace) 100 mg PO TID [facility] Last Admin: 09/04/18 15:31 Dose: 100 mg Heparin Sodium (Porcine) (Heparin) 5,000 units SC Q8 OMI Last Admin: 09/04/18 15:30 Dose: 5,000 units Metronidazole (Flagyl) 500 mg in 100 mls @ 100 mls/hr IVPB Q8H [facility]; Protocol Last Admin: 09/04/18 12:27 Dose: 100 mls/hr Ceftriaxone Sodium 2 gm/ (Sodium Chloride) 100 mls @ 100 mls/hr IVPB DAILY OMI; Protocol Last Admin: 09/04/18 10:40 Dose: 100 mls/hr Morphine Sulfate (Morphine) 2 mg IVP Q4 PRN Last Admin: 08/31/18 21:30 Dose: 2 mg Pantoprazole Sodium (Protonix Ec Tab) 40 mg PO DAILY OMI - Labs Labs: 09/03/18 07:12 09/03/18 07:12 PT 17.1 SECONDS (9.7-12.2) H 08/30/18 19:29 INR 1.6 08/30/18 19:29 APTT 33 SECONDS (21-34) 08/30/18 19:29 Assessment and Plan (1) Fever Status: Acute (2) Hepatic abscess Status: Acute - Assessment and Plan (Free Text) Assessment: Appear improved, cultures negative, however had GNR in blood at [facility] [place]. He should be checked for E. histolytica. Possible he had bacteria secondary infection. Either way will be D/C'd on IV antibiotics. Will see in office in a week
--- NOTE | 2018-09-03 17:38 | CP.PCM.PN ---
Subjective - Date & Time of Evaluation Date of Evaluation: 09/03/18 Time of Evaluation: 17:37 - Subjective Subjective: pt is doing well no pain no chest pain vitals stable continue antibiotics Objective - Vital Signs/Intake and Output Vital Signs (last 24 hours): Temp Pulse Resp BP Pulse Ox 97.2 F L 97 H 20 127/95 H 96 09/03/18 08:00 09/03/18 08:00 09/03/18 08:00 09/03/18 08:00 09/03/18 08:00 Intake and Output: 09/03/18 09/03/18 06:59 18:59 Intake Total 1100 Output Total 10 Balance 1100 -10 - Medications Medications: Current Medications Docusate Sodium (Colace) 100 mg PO TID OMI Last Admin: 09/03/18 13:36 Dose: 100 mg Heparin Sodium (Porcine) (Heparin) 5,000 units SC Q8 OMI Last Admin: 09/03/18 13:36 Dose: 5,000 units Metronidazole (Flagyl) 500 mg in 100 mls @ 100 mls/hr IVPB Q8H OMI; Protocol Last Admin: 09/03/18 10:17 Dose: 100 mls/hr Ceftriaxone Sodium 2 gm/ (Sodium Chloride) 100 mls @ 100 mls/hr IVPB DAILY OMI; Protocol Morphine Sulfate (Morphine) 2 mg IVP Q4 PRN Last Admin: 08/31/18 21:30 Dose: 2 mg Pantoprazole Sodium (Protonix Inj) 40 mg IVP DAILY OMI Last Admin: 09/03/18 10:03 Dose: 40 mg - Labs Labs: 09/03/18 07:12 09/03/18 07:12 PT 17.1 SECONDS (9.7-12.2) H 08/30/18 19:29 INR 1.6 08/30/18 19:29 APTT 33 SECONDS (21-34) 08/30/18 19:29
--- NOTE | 2018-09-03 17:53 | CP.PCM.PN ---
Subjective - Date & Time of Evaluation Date of Evaluation: 09/03/18 Time of Evaluation: 17:36 - Subjective Subjective: INFECTIOUS DISEASE PROGRESS NOTES ESAU DANIELS MD, FACP BOARD CERTIFIED iNFECTIOUS DISEASES X 3 09/03/2018 5T 557-B CHART REVIEWED PT EXAMINED CASE DISCUSSED PT IS CLINICALLY RESPONDING TO ROCEPHIN, FLAGYL AND DAPTOMYCIN(JUST STOPPED DAPETOMYCIN)-ALL C/S NEGATIVE SO FAR, EVEN FROM [facility] [place]. I JUST MET DR LUNA AND WE DISCUSSED THE CASE, MADE CLEAR-GRAM NEGATIVES IN THE BLOOD ARE NEVER A CONTAMINATE. WILL SUGGEST DECREASING ROCEPHIN 2 GMS IVPG OD + FLAGYL FOR NOW PICCLINE FOR NOW AND ARRANGE FOR HOME CARE - KABAFUSION, AMY NICOLE - MAIN NUMBER 7- [phone], HER CELL IS: [phone]. I WILL ARRANGE THE DOSAGE AND THE TREATMENT LENGTH OF TIME, I WILL FOLLOW AN OUT PATIENT FOR SAME. LUNGS CLEAR COR RR ABDOMEN SOFT EXT NO DVTS RESPONDING LIVER ABSCESS - NO TEMPERATURE AND DECREASED WBC. CHECK STOOL FOR OVA AND PARASITES X 3. PLEASE CALL ME FOR ANY MANAGEMENT FURTHER ISSUES. Objective - Vital Signs/Intake and Output Vital Signs (last 24 hours): Temp Pulse Resp BP Pulse Ox 97.2 F L 97 H 20 127/95 H 96 09/03/18 08:00 09/03/18 08:00 09/03/18 08:00 09/03/18 08:00 09/03/18 08:00 Intake and Output: 09/03/18 09/03/18 06:59 18:59 Intake Total 1100 Output Total 10 Balance 1100 -10 - Medications Medications: Current Medications Docusate Sodium (Colace) 100 mg PO TID OMI Last Admin: 09/03/18 13:36 Dose: 100 mg Heparin Sodium (Porcine) (Heparin) 5,000 units SC Q8 OMI Last Admin: 09/03/18 13:36 Dose: 5,000 units Metronidazole (Flagyl) 500 mg in 100 mls @ 100 mls/hr IVPB Q8H OMI; Protocol Last Admin: 09/03/18 10:17 Dose: 100 mls/hr Ceftriaxone Sodium 2 gm/ (Sodium Chloride) 100 mls @ 100 mls/hr IVPB DAILY OMI; Protocol Morphine Sulfate (Morphine) 2 mg IVP Q4 PRN Last Admin: 08/31/18 21:30 Dose: 2 mg Pantoprazole Sodium (Protonix Inj) 40 mg IVP DAILY OMI Last Admin: 09/03/18 10:03 Dose: 40 mg - Labs Labs: 09/03/18 07:12 09/03/18 07:12 PT 17.1 SECONDS (9.7-12.2) H 08/30/18 19:29 INR 1.6 08/30/18 19:29 APTT 33 SECONDS (21-34) 08/30/18 19:29
[2018-09-04] MEDS: metroNIDAZOLE IV 500 mg/100 ml 500 MG/100 ML BAG IVPB SCH ×3 (02:07→18:19)
--- NOTE | 2018-09-04 07:31 | CP.PCM.PN ---
Objective - Vital Signs/Intake and Output Vital Signs (last 24 hours): Temp Pulse Resp BP Pulse Ox 97.9 F 81 20 149/94 H 96 09/03/18 23:35 09/03/18 23:35 09/03/18 23:35 09/03/18 23:35 09/03/18 23:35 Intake and Output: 09/04/18 09/04/18 06:59 18:59 Output Total 0 Balance 0 - Medications Medications: Current Medications Docusate Sodium (Colace) 100 mg PO TID [facility] Last Admin: 09/03/18 18:22 Dose: 100 mg Heparin Sodium (Porcine) (Heparin) 5,000 units SC Q8 OMI Last Admin: 09/04/18 06:31 Dose: Not Given Metronidazole (Flagyl) 500 mg in 100 mls @ 100 mls/hr IVPB Q8H [facility]; Protocol Last Admin: 09/04/18 02:07 Dose: 100 mls/hr Ceftriaxone Sodium 2 gm/ (Sodium Chloride) 100 mls @ 100 mls/hr IVPB DAILY [facility]; Protocol Morphine Sulfate (Morphine) 2 mg IVP Q4 PRN Last Admin: 08/31/18 21:30 Dose: 2 mg Pantoprazole Sodium (Protonix Inj) 40 mg IVP DAILY OMI Last Admin: 09/03/18 10:03 Dose: 40 mg - Labs Labs: 09/03/18 07:12 09/03/18 07:12 PT 17.1 SECONDS (9.7-12.2) H 08/30/18 19:29 INR 1.6 08/30/18 19:29 APTT 33 SECONDS (21-34) 08/30/18 19:29
--- NOTE | 2018-09-04 07:32 | CP.PCM.PN ---
<Stone Bates - Last Filed: 09/04/18 15:21> Subjective - Date & Time of Evaluation Date of Evaluation: 09/04/18 Time of Evaluation: 07:00 - Subjective Subjective: Surgery progress note for Dr. Tim Patient seen and examined at bedside. Pt is s/p hepatic abscess drainage via IR (day 4). No acute events overnight reported. Patient states he has minimal to no pain, is able to walk around and pass bowel movements. Patient denies chest pain, nausea, vomiting, fevers, chills. Cultures negative X 3 days. Objective - Vital Signs/Intake and Output Vital Signs (last 24 hours): Temp Pulse Resp BP Pulse Ox 97.9 F 81 20 149/94 H 96 09/03/18 23:35 09/03/18 23:35 09/03/18 23:35 09/03/18 23:35 09/03/18 23:35 Intake and Output: 09/04/18 09/04/18 06:59 18:59 Output Total 0 Balance 0 - Medications Medications: Current Medications Docusate Sodium (Colace) 100 mg PO TID [facility] Last Admin: 09/03/18 18:22 Dose: 100 mg Heparin Sodium (Porcine) (Heparin) 5,000 units SC Q8 OMI Last Admin: 09/04/18 06:31 Dose: Not Given Metronidazole (Flagyl) 500 mg in 100 mls @ 100 mls/hr IVPB Q8H OMI; Protocol Last Admin: 09/04/18 02:07 Dose: 100 mls/hr Ceftriaxone Sodium 2 gm/ (Sodium Chloride) 100 mls @ 100 mls/hr IVPB DAILY [facility]; Protocol Morphine Sulfate (Morphine) 2 mg IVP Q4 PRN Last Admin: 08/31/18 21:30 Dose: 2 mg Pantoprazole Sodium (Protonix Inj) 40 mg IVP DAILY OMI Last Admin: 09/03/18 10:03 Dose: 40 mg - Labs Labs: 09/03/18 07:12 09/03/18 07:12 PT 17.1 SECONDS (9.7-12.2) H 08/30/18 19:29 INR 1.6 08/30/18 19:29 APTT 33 SECONDS (21-34) 08/30/18 19:29 - Constitutional Appears: Non-toxic, No Acute Distress - ENT Exam ENT Exam: Mucous Membranes Moist - Respiratory Exam Respiratory Exam: NORMAL BREATHING PATTERN - Cardiovascular Exam Additional comments: RR - GI/Abdominal Exam GI & Abdominal Exam: Soft Additional comments: Right Abdomen IR drain in place, 10 CC purulent fluid over past 8 hours - Neurological Exam Neurological Exam: Alert, Awake, Oriented x3 - Psychiatric Exam Psychiatric exam: Normal Affect, Normal Mood - Skin Skin Exam: Dry, Intact, Normal Color, Warm Assessment and Plan - Assessment and Plan (Free Text) Assessment: 48 M w/ hepatic abscess s/p IR drain placed on 08/31/17 Plan: - F/u U/S abd - No further surgical intervention at this point - Continue Abx per ID Further recs as per Dr. Meeta Bates, PGY1 <Kevin Tim - Last Filed: 09/04/18 17:00> Objective - Vital Signs/Intake and Output Vital Signs (last 24 hours): Temp Pulse Resp BP Pulse Ox 97.8 F 88 20 132/91 H 97 09/04/18 16:00 09/04/18 16:00 09/04/18 16:00 09/04/18 16:00 09/04/18 16:00 Intake and Output: 09/04/18 09/04/18 06:59 18:59 Output Total 0 5 Balance 0 -5 - Medications Medications: Current Medications Docusate Sodium (Colace) 100 mg PO TID [facility] Last Admin: 09/04/18 15:31 Dose: 100 mg Heparin Sodium (Porcine) (Heparin) 5,000 units SC Q8 OMI Last Admin: 09/04/18 15:30 Dose: 5,000 units Metronidazole (Flagyl) 500 mg in 100 mls @ 100 mls/hr IVPB Q8H OMI; Protocol Last Admin: 09/04/18 12:27 Dose: 100 mls/hr Ceftriaxone Sodium 2 gm/ (Sodium Chloride) 100 mls @ 100 mls/hr IVPB DAILY [facility]; Protocol Last Admin: 09/04/18 10:40 Dose: 100 mls/hr Morphine Sulfate (Morphine) 2 mg IVP Q4 PRN Last Admin: 08/31/18 21:30 Dose: 2 mg Pantoprazole Sodium (Protonix Ec Tab) 40 mg PO DAILY OMI - Labs Labs: 09/03/18 07:12 09/03/18 07:12 PT 17.1 SECONDS (9.7-12.2) H 08/30/18 19:29 INR 1.6 08/30/18 19:29 APTT 33 SECONDS (21-34) 08/30/18 19:29 Assessment and Plan (1) Fever Status: Acute (2) Hepatic abscess Status: Acute - Assessment and Plan (Free Text) Assessment: Patient examined, labs and imaging reviewed. Abscess slightly smaller, howerver on prior CT he has probable hematoma within. Cultures negative. Appears better. Awaits PICC line, and then DC on home antibiotics as per ID. Will see in the office in a week Kevin Bernstein
--- NOTE | 2018-09-04 08:39 | CP.PCM.CON ---
History of Present Illness - History of Present Illness History of Present Illness: Asked tosee pt for liver abscess. 48 yo male h/o DM, was having fevers. Admitted and found to have liver abscess. s/p drainage 4 days ago. BCs pos for GN. Denies abd pain, diarrhea, RB, melena, vomitingPMH- MRSA buttocks infection . FH- No IBD Review of Systems - Constitutional Constitutional: Chills, Fever, Weight Loss. absent: Weight Gain - EENT Eyes: absent: Photophobia - Cardiovascular Cardiovascular: absent: Chest Pain, Dyspnea - Respiratory Respiratory: absent: Dyspnea, Hemoptysis, Wheezing - Gastrointestinal Gastrointestinal: Abdominal Pain. absent: Constipation, Diarrhea, Hematemesis, Hematochezia, Melena, Nausea, Vomiting - Genitourinary Genitourinary: absent: Dysuria, Hematuria - Musculoskeletal Musculoskeletal: absent: Muscle Cramps, Tingling - Integumentary Integumentary: absent: Erythema, Pruritus, Rash - Neurological Neurological: absent: Headaches Past Patient History - Infectious Disease Hx of Infectious Diseases: None - Past Medical History & Family History Past Medical History?: No Past Family History: Reviewed and not pertinent - Past Social History Smoking Status: Never Smoked Chewing Tobacco Use: No Cigar Use: No Occupation: self employed Alcohol: Occasional Drugs: Denies Home Situation {Lives}: Other - CARDIAC Hx Cardiac Disorders: No Hx Angina: No Hx Atrial Fibrillation: No Hx Cardia Arrhythmia: No Hx Circulatory Problems: No Hx Congestive Heart Failure: No Hx Heart Attack: No Hx Heart Murmur: No Hx Heart Transplant: No Hx Hypercholesterolemia: No Hx Hypertension: No Hx Hypotension: No Hx Internal Defibrillator: No Hx Mitral Valve Prolapse: No Hx Pacemaker: No Hx Peripheral Edema: No Hx Peripheral Vascular Disease: No - PULMONARY Hx Respiratory Disorders: No Hx Asthma: No Hx Bronchitis: No Hx Chronic Obstructive Pulmonary Disease (COPD): No Hx Emphysema: No Hx Lung Cancer: No Hx Pneumonia: No Hx Pulmonary Edema: No Hx Pulmonary Embolism: No Hx Respiratory Aspiration: No Hx Respiratory Tract Infection: No Hx Sleep Apnea: No Hx Tuberculosis: No - NEUROLOGICAL Hx Neurological Disorder: No - HEENT Hx HEENT Problems: No - RENAL Hx Chronic Kidney Disease: No - ENDOCRINE/METABOLIC Hx Diabetes Mellitus Type 2: Yes (pre-diabetic) - HEMATOLOGICAL/ONCOLOGICAL Hx Blood Disorders: No - INTEGUMENTARY Hx Dermatological Problems: No - MUSCULOSKELETAL/RHEUMATOLOGICAL Hx Musculoskeletal Disorders: No Hx Falls: No - GASTROINTESTINAL Hx Gastrointestinal Disorders: No - GENITOURINARY/GYNECOLOGICAL Hx Genitourinary Disorders: No - PSYCHIATRIC Hx Substance Use: No - SURGICAL HISTORY Hx Tonsillectomy: Yes (and uvula removal) - ANESTHESIA Hx Anesthesia: Yes Meds Allergies/Adverse Reactions: Allergies Allergy/AdvReac Type Severity Reaction Status Date / Time No Known Allergies Allergy Verified 08/30/18 18:17 - Medications Medications: Current Medications Docusate Sodium (Colace) 100 mg PO TID [facility] Last Admin: 09/03/18 18:22 Dose: 100 mg Heparin Sodium (Porcine) (Heparin) 5,000 units SC Q8 OMI Last Admin: 09/04/18 06:31 Dose: Not Given Metronidazole (Flagyl) 500 mg in 100 mls @ 100 mls/hr IVPB Q8H [facility]; Protocol Last Admin: 09/04/18 02:07 Dose: 100 mls/hr Ceftriaxone Sodium 2 gm/ (Sodium Chloride) 100 mls @ 100 mls/hr IVPB DAILY [facility]; Protocol Morphine Sulfate (Morphine) 2 mg IVP Q4 PRN Last Admin: 08/31/18 21:30 Dose: 2 mg Pantoprazole Sodium (Protonix Inj) 40 mg IVP DAILY [facility] Last Admin: 09/03/18 10:03 Dose: 40 mg Physical Exam - Head Exam Head Exam: ATRAUMATIC - Neck Exam Neck exam: Negative for: Tenderness - Respiratory Exam Respiratory Exam: Clear to Auscultation Bilateral - Cardiovascular Exam Cardiovascular Exam: RRR - GI/Abdominal Exam GI & Abdominal Exam: Normal Bowel Sounds, Soft. absent: Guarding, Mass, Rebound, Tenderness - Extremities Exam Extremities exam: Negative for: pedal edema - Neurological Exam Neurological exam: Alert, Oriented x3 Results - Vital Signs Recent Vital Signs: Last Vital Signs Temp 97.9 F 09/03/18 23:35 Pulse 81 09/03/18 23:35 Resp 20 09/03/18 23:35 BP 149/94 H 09/03/18 23:35 Pulse Ox 96 09/03/18 23:35 - Labs Result Diagrams: 09/03/18 07:12 09/03/18 07:12 Labs: Laboratory Results - last 24 hr 08/30/18 09/03/18 09/03/18 22:05 11:49 16:29 POC Glucose (mg/dL) 173 H 137 H Brucella Agglutinins 09/03/18 09/04/18 21:12 06:15 POC Glucose (mg/dL) 157 H 122 H Brucella Agglutinins Assessment & Plan (1) Anemia Status: Acute (2) Fever Assessment and Plan: Liver abscess. Status: Acute (3) Hepatic abscess Assessment and Plan: Unclear etiology. No appendicitis, diverticulits, colitis, endoscpy, trauma., GB dis. Sepsis can be a cause for liver abscess. P- s/p drainage, IV ABx. sono. Status: Acute Priority: High
[2018-09-04] MEDS: cefTRIAXone 2 GM in Sodium Chloride 0.9% 100 ML IVPB SCH (10:40)
--- NOTE | 2018-09-04 12:29 | US ---
Date of service: 09/04/2018 HISTORY: Liver abscess. Relevant interventional procedure(s): 08/31/2018. CT guided drainage catheter placement into the collection in the right hepatic lobe. COMPARISON: None. TECHNIQUE: Sonographic evaluation of the right upper quadrant of the abdomen. FINDINGS: LIVER: Measures 16.3 cm in length. Hepatopedal blood flow. Fatty infiltration manifest ultrasonographically as increased echogenicity of the liver parenchyma. Residual liver collection 5.8 x 9.2 x 9.96 cm. GALLBLADDER: Cholelithiasis. Negative study for gallbladder wall thickening, pericholecystic fluid, sonographic Thurston's sign. Solitary stone appears in the neck of the gallbladder. COMMON BILE DUCT: Measures 4.5 mm. No stones. No dilatation. PANCREAS: Unremarkable as visualized. No mass. No ductal dilatation. RIGHT KIDNEY: Measures 4.2 x 11.8 cm in length. Normal echogenicity. No calculus, mass, or hydronephrosis. AORTA: No aneurysmal dilatation. IVC: Unremarkable. OTHER FINDINGS: Trace right pleural effusion. IMPRESSION: Redemonstration of complex fluid collection/abscess right hepatic lobe. Cholelithiasis. No sonographic evidence of acute cholecystitis.
--- NOTE | 2018-09-04 19:31 | CP.PCM.PN ---
Subjective - Date & Time of Evaluation Date of Evaluation: 09/04/18 Time of Evaluation: 19:26 - Subjective Subjective: INFECTIOUS DISEASE PROGRESS NOTES ESAU DANIELS MD, FACP 09/04/2018 5T 557-B CHART REVIEWED DISCUSSED WITH [place] ATTENDANT AND DR CEJA EXAM NOTED RESPONDING TO IV AB 48 yo male h/o DM, was having fevers. Admitted and found to have liver abscess. s/p drainage 4 days ago. BCs pos for GN. Denies abd pain, diarrhea, RB, melena, vomitingPMH- MRSA buttocks infection. FH- No IBD Review of Systems - Constitutional Constitutional: Chills, Fever, Weight Loss. absent: Weight Gain - EENT Eyes: absent: Photophobia - Cardiovascular Cardiovascular: absent: Chest Pain, Dyspnea - Respiratory Respiratory: absent: Dyspnea, Hemoptysis, Wheezing - Gastrointestinal Gastrointestinal: Abdominal Pain. absent: Constipation, Diarrhea, Hematemesis, Hematochezia, Melena, Nausea, Vomiting - Genitourinary Genitourinary: absent: Dysuria, Hematuria - Musculoskeletal Musculoskeletal: absent: Muscle Cramps, Tingling - Integumentary Integumentary: absent: Erythema, Pruritus, Rash - Neurological Neurological: absent: Headaches Past Patient History - Infectious Disease Hx of Infectious Diseases: None - Past Medical History & Family History Past Medical History?: No Past Family History: Reviewed and not pertinent - Past Social History Smoking Status: Never Smoked Chewing Tobacco Use: No Cigar Use: No Occupation: self employed Alcohol: Occasional Drugs: Denies Home Situation {Lives}: Other - CARDIAC Hx Cardiac Disorders: No Hx Angina: No Hx Atrial Fibrillation: No Hx Cardia Arrhythmia: No Hx Circulatory Problems: No Hx Congestive Heart Failure: No Hx Heart Attack: No Hx Heart Murmur: No Hx Heart Transplant: No Hx Hypercholesterolemia: No Hx Hypertension: No Hx Hypotension: No Hx Internal Defibrillator: No Hx Mitral Valve Prolapse: No Hx Pacemaker: No Hx Peripheral Edema: No Hx Peripheral Vascular Disease: No - PULMONARY Hx Respiratory Disorders: No Hx Asthma: No Hx Bronchitis: No Hx Chronic Obstructive Pulmonary Disease (COPD): No Hx Emphysema: No Hx Lung Cancer: No Hx Pneumonia: No Hx Pulmonary Edema: No Hx Pulmonary Embolism: No Hx Respiratory Aspiration: No Hx Respiratory Tract Infection: No Hx Sleep Apnea: No Hx Tuberculosis: No - NEUROLOGICAL Hx Neurological Disorder: No - HEENT Hx HEENT Problems: No - RENAL Hx Chronic Kidney Disease: No - ENDOCRINE/METABOLIC Hx Diabetes Mellitus Type 2: Yes (pre-diabetic) - HEMATOLOGICAL/ONCOLOGICAL Hx Blood Disorders: No - INTEGUMENTARY Hx Dermatological Problems: No - MUSCULOSKELETAL/RHEUMATOLOGICAL Hx Musculoskeletal Disorders: No Hx Falls: No - GASTROINTESTINAL Hx Gastrointestinal Disorders: No - GENITOURINARY/GYNECOLOGICAL Hx Genitourinary Disorders: No - PSYCHIATRIC Hx Substance Use: No - SURGICAL HISTORY Hx Tonsillectomy: Yes (and uvula removal) - ANESTHESIA Hx Anesthesia: Yes Meds Allergies/Adverse Reactions: Allergies Allergy/AdvReac Type Severity Reaction Status Date / Time No Known Allergies Allergy Verified 08/30/18 18:17 - Medications Medications: Current Medications Docusate Sodium (Colace) 100 mg PO TID [facility] Last Admin: 09/03/18 18:22 Dose: 100 mg Heparin Sodium (Porcine) (Heparin) 5,000 units SC Q8 OMI Last Admin: 09/04/18 06:31 Dose: Not Given Metronidazole (Flagyl) 500 mg in 100 mls @ 100 mls/hr IVPB Q8H OMI; Protocol Last Admin: 09/04/18 02:07 Dose: 100 mls/hr Ceftriaxone Sodium 2 gm/ (Sodium Chloride) 100 mls @ 100 mls/hr IVPB DAILY [facility]; Protocol Morphine Sulfate (Morphine) 2 mg IVP Q4 PRN Last Admin: 08/31/18 21:30 Dose: 2 mg Pantoprazole Sodium (Protonix Inj) 40 mg IVP DAILY [facility] Last Admin: 09/03/18 10:03 Dose: 40 mg Physical Exam - Head Exam Head Exam: ATRAUMATIC - Neck Exam Neck exam: Negative for: Tenderness - Respiratory Exam Respiratory Exam: Clear to Auscultation Bilateral - Cardiovascular Exam Cardiovascular Exam: RRR - GI/Abdominal Exam GI & Abdominal Exam: Normal Bowel Sounds, Soft. absent: Guarding, Mass, Rebo und, Tenderness - Extremities Exam Extremities exam: Negative for: pedal edema - Neurological Exam Neurological exam: Alert, Oriented x3 Results - Vital Signs Recent Vital Signs: Last Vital Signs Temp 97.9 F 09/03/18 23:35 Pulse 81 09/03/18 23:35 Resp 20 09/03/18 23:35 BP 149/94 H 09/03/18 23:35 Pulse Ox 96 09/03/18 23:35 - Labs Result Diagrams: 09/03/18 07:12 09/03/18 07:12 Labs: Laboratory Results - last 24 hr 08/30/18 09/03/18 09/03/18 22:05 11:49 16:29 POC Glucose (mg/dL) 173 H 137 H Brucella Agglutinins 09/03/18 09/04/18 21:12 06:15 POC Glucose (mg/dL) 157 H 122 H Bru[place]a Agglutinins Assessment & Plan (1) Anemia Status: Acute (2) Fever Assessment and Plan: Liver abscess. Status: Acute (3) Hepatic abscess Assessment and Plan: Unclear etiology. No appendicitis, diverticulits, colitis, endoscpy, trauma., GB dis. Sepsis can be a cause for liver abscess. AWAITING FOR [facility]CL[facility] FOR OUTPT IV ANTIBIOTICS [facility] MANAGEMENT PER SURGERY/IR PT TO HAVE LABS 2XWEEK PT TO FOLLOW UP WEEKLY WITH ME APPRECIATE DR CEJA'S MANAGEMENT FOR POSSIBLE HOME TOMORROW. ESAU DANIELS MD, FACP Objective - Vital Signs/Intake and Output Vital Signs (last 24 hours): Temp Pulse Resp BP Pulse Ox 97.8 F 88 20 132/91 H 97 09/04/18 16:00 09/04/18 16:00 09/04/18 16:00 09/04/18 16:00 09/04/18 16:00 Intake and Output: 09/04/18 09/05/18 18:59 06:59 Output Total 5 Balance -5 - Medications Medications: Current Medications Docusate Sodium (Colace) 100 mg PO TID [facility] Last Admin: 09/04/18 17:56 Dose: 100 mg Heparin Sodium (Porcine) (Heparin) 5,000 units SC Q8 OMI Last Admin: 09/04/18 15:30 Dose: 5,000 units Metronidazole (Flagyl) 500 mg in 100 mls @ 100 mls/hr IVPB Q8H OMI; Protocol Last Admin: 09/04/18 18:19 Dose: 100 mls/hr Ceftriaxone Sodium 2 gm/ (Sodium Chloride) 100 mls @ 100 mls/hr IVPB DAILY [facility]MI; Protocol Last Admin: 09/04/18 10:40 Dose: 100 mls/hr Morphine Sulfate (Morphine) 2 mg IVP Q4 PRN Last Admin: 08/31/18 21:30 Dose: 2 mg Pantoprazole Sodium (Protonix Ec Tab) 40 mg PO DAILY OMI - Labs Labs: 09/03/18 07:12 09/03/18 07:12 PT 17.1 SECONDS (9.7-12.2) H 08/30/18 19:29 INR 1.6 08/30/18 19:29 APTT 33 SECONDS (21-34) 08/30/18 19:29
[2018-09-05] MEDS: metroNIDAZOLE IV 500 mg/100 ml 500 MG/100 ML BAG IVPB SCH ×3 (03:56→18:40)
[2018-09-05] MEDS: cefTRIAXone 2 GM in Sodium Chloride 0.9% 100 ML IVPB SCH (09:36)
[2018-09-05] MEDS: Pantoprazole 40 mg EC Tab PO SCH (10:37)
--- NOTE | 2018-09-05 12:44 | PCM.SURG1 ---
Surgeon's Initial Post Op Note - Surgeon's Notes Surgeon: Isra Walker MD Account Manager B2B: None Type of Anesthesia: Local Pre-Operative Diagnosis: Liver abscess Operative Findings: US showed patent left brachial vein Post-Operative Diagnosis: Liver abscess Operation Performed: Single lumen picc placement left arm, 45 cm. Tip in innominate vein Specimen/Specimens Removed: none Estimated Blood Loss: EBL {In ML}: 2 Blood Products Given: N/A Drains Used: No Drains Post-Op Condition: Fair Date of Surgery/Procedure: 09/05/18 Time of Surgery/Procedure: 12:40
--- NOTE | 2018-09-05 20:26 | CP.PCM.PN ---
Subjective - Date & Time of Evaluation Date of Evaluation: 09/05/18 Time of Evaluation: 20:25 - Subjective Subjective: Patient had a PICC line done today. After discussion with interventional radiology, recommended to have a repeat ct of the abdomen. Possibly will remove the biliary drainage. Patient is otherwise doing well. On antibiotic. Continue the supportive treatment and will follow the patient Objective - Vital Signs/Intake and Output Vital Signs (last 24 hours): Temp Pulse Resp BP Pulse Ox 98.2 F 93 H 18 140/96 H 98 09/05/18 17:11 09/05/18 17:11 09/05/18 17:11 09/05/18 17:11 09/05/18 16:43 Intake and Output: 09/05/18 09/06/18 18:59 06:59 Intake Total 300 Output Total 8 Balance 292 - Medications Medications: Current Medications Docusate Sodium (Colace) 100 mg PO TID [facility] Last Admin: 09/05/18 18:40 Dose: 100 mg Heparin Sodium (Porcine) (Heparin) 5,000 units SC Q8 OMI Last Admin: 09/05/18 14:08 Dose: 5,000 units Metronidazole (Flagyl) 500 mg in 100 mls @ 100 mls/hr IVPB Q8H OMI; Protocol Last Admin: 09/05/18 18:40 Dose: 100 mls/hr Ceftriaxone Sodium 2 gm/ (Sodium Chloride) 100 mls @ 100 mls/hr IVPB DAILY [facility]; Protocol Last Admin: 09/05/18 09:36 Dose: 100 mls/hr Pantoprazole Sodium (Protonix Ec Tab) 40 mg PO DAILY [facility] Last Admin: 09/05/18 10:37 Dose: 40 mg - Labs Labs: 09/03/18 07:12 09/03/18 07:12 PT 17.1 SECONDS (9.7-12.2) H 08/30/18 19:29 INR 1.6 08/30/18 19:29 APTT 33 SECONDS (21-34) 08/30/18 19:29
[2018-09-05] MEDS ORDERED: Iodixanol 320 mg/ml 150 ml Bottle IV ONE (20:34)
[2018-09-06 01:16] VITALS: RESP 20
[2018-09-06] MEDS: metroNIDAZOLE IV 500 mg/100 ml 500 MG/100 ML BAG IVPB SCH ×2 (04:00→10:05)
[2018-09-06 08:55] VITALS: O2SAT 97
[2018-09-06] MEDS: cefTRIAXone 2 GM in Sodium Chloride 0.9% 100 ML IVPB SCH (10:05)
[2018-09-06] MEDS: Pantoprazole 40 mg EC Tab PO SCH (10:05)
--- NOTE | 2018-09-06 12:32 | CP.PCM.PN ---
Subjective - Date & Time of Evaluation Date of Evaluation: 09/06/18 Time of Evaluation: 11:40 - Subjective Subjective: f/u liver abscess. Denies fever, abdom pain, CP, SOB, SZ, VIVAS, cough Objective - Vital Signs/Intake and Output Vital Signs (last 24 hours): Temp Pulse Resp BP Pulse Ox 97.9 F 96 H 20 134/90 97 09/06/18 07:00 09/06/18 07:00 09/06/18 07:00 09/06/18 07:00 09/06/18 07:00 Intake and Output: 09/06/18 09/06/18 06:59 18:59 Intake Total 100 Output Total 5 Balance 95 - Medications Medications: Current Medications Docusate Sodium (Colace) 100 mg PO TID [facility] Last Admin: 09/06/18 10:05 Dose: 100 mg Heparin Sodium (Porcine) (Heparin) 5,000 units SC Q8 OMI Last Admin: 09/06/18 05:30 Dose: 5,000 units Metronidazole (Flagyl) 500 mg in 100 mls @ 100 mls/hr IVPB Q8H OMI; Protocol Last Admin: 09/06/18 10:05 Dose: 100 mls/hr Ceftriaxone Sodium 2 gm/ (Sodium Chloride) 100 mls @ 100 mls/hr IVPB DAILY OMI; Protocol Last Admin: 09/06/18 10:05 Dose: 100 mls/hr Pantoprazole Sodium (Protonix Ec Tab) 40 mg PO DAILY [facility] Last Admin: 09/06/18 10:05 Dose: 40 mg - Labs Labs: 09/03/18 07:12 09/03/18 07:12 PT 17.1 SECONDS (9.7-12.2) H 08/30/18 19:29 INR 1.6 08/30/18 19:29 APTT 33 SECONDS (21-34) 08/30/18 19:29 - Constitutional Appears: Well - Respiratory Exam Respiratory Exam: Clear to Ausculation Bilateral - Cardiovascular Exam Cardiovascular Exam: RRR - GI/Abdominal Exam GI & Abdominal Exam: Soft, Normal Bowel Sounds. absent: Guarding, Tenderness, Hernia, Mass, Rebound - Extremities Exam Extremities Exam: absent: Pedal Edema - Neurological Exam Neurological Exam: Alert, Oriented x3 Assessment and Plan (1) Anemia Status: Acute (2) Fever Status: Acute (3) Hepatic abscess Assessment & Plan: Unclear etiology. + GB stones- no sign of cholecystitis. Check repeat CT done yest- not read yet Status: Acute
--- NOTE | 2018-09-06 13:54 | RAD ---
PROCEDURE: Date of procedure: 08/09/2018 Procedure: 1. Placement of a left arm PICC with ultrasound and fluoroscopic guidance, CPT 41586 2. PICC tip confirmation with spot radiograph and is in the superior vena cava Medications: 3cc 1 percent lidocaine Total Fluoro time: 4.2 Seconds Radiation: 1.8 MGy EBL: 3 cc HISTORY: Infection requiring long-term IV antibiotics TECHNIQUE: Following informed consent and procedure time-out, the patient placed supine on the interventional table and the left arm prepped and draped in the usual sterile fashion. Ultrasound showed a patent and compressible left basilic vein. After the skin was anesthetized with lidocaine, the basilic vein was accessed with micro micropuncture technique using ultrasound guidance. A guidewire was then advanced under fluoroscopic guidance into the superior vena cava. An image documenting ultrasound guidance for vascular access was permanently saved. The length of a single-lumen 4 [place] PICC was trimmed to 45 cm and advanced through a peel-away sheath. The PICC was position with tip of PICC confirm a spot radiograph the innominate vein. The PICC was secured to the patient's skin. The PICC was flushed. A biopatch and sterile dressing was applied. IMPRESSION: Placement of a single-lumen 4 [place] PICC left basilic vein trimmed to 45 cm. The tip of the PICC is confirmed with spot radiograph and is in the innominate vein.
--- NOTE | 2018-09-06 14:01 | US ---
Date of procedure: 09/05/2018 Procedure: Ultrasound guidance for vascular access HISTORY: Infection requiring long-term IV antibiotics TECHNIQUE: Following informed consent and procedure time-out, the patient placed supine on the interventional table and the left arm prepped and draped in the usual sterile fashion. Ultrasound showed a patent and compressible basilic vein. After the skin was anesthetized with lidocaine, the basilic vein was accessed with micro micropuncture technique using ultrasound guidance. An image documenting ultrasound guidance for vascular access was permanently saved. IMPRESSION: Ultrasound guidance for vascular access for placement of PICC.
--- NOTE | 2018-09-06 14:24 | CT ---
Date of service: 09/05/2018 CT chest, abdomen, and pelvis with IV contrast Indication: follow up post pigtail Technique: Contiguous axial images of the chest, abdomen, and pelvis. Coronal and Sagittal reformats generated and reviewed. This CT exam was performed using 1 or more of the following dose reduction techniques: Automated exposure control, adjustment of the MAA and/or kV according to patient size, and/or use of iterative reconstruction technique. Contrast: 100 mL Visipaque 320 IV Radiation dose: Total exam DLP = 1702.52 MGy-cm. Comparison: Limited abdominal ultrasound performed 09/04/18, CT of the chest, abdomen, and pelvis with IV contrast performed 08/30/18 Findings: Visualized portions of the inferior thyroid gland appear unremarkable. The mediastinal and hilar vascular structures appear within normal limits. The heart appears within normal limits of size. Bibasilar atelectasis. Small pleural effusion and dependent consolidation. No pneumothorax. No suspicious pulmonary nodules identified measuring greater than 5 mm. Hypoattenuation at the level the falciform ligament, possibly focal fatty infiltration. 6.5 x 6.8 cm posterior right hepatic lobe heterogeneous collection consistent with abscess with drainage catheter present. 7 mm right medial right limb adrenal gland. The spleen, kidneys, pancreas, and left adrenal gland appears unremarkable. Contracted gallbladder limits evaluation. The stomach is nondistended. The bowel loops appear within normal limits of caliber without evidence of intestinal obstruction. There is no definite free air. The prostate gland appears unremarkable. The urinary bladder appears unremarkable. No acute osseous abnormality is detected. Impression: Right posterior hepatic lobe abscess appears smaller none prior study currently measuring approximately 6.5 x 6.8 cm. Drainage catheter present. Hypoattenuation at the level of the false form ligament, possibly focal fatty infiltration. 7 mm nodule, right medial limb adrenal gland. Small right pleural effusion and dependent consolidation. Bibasilar atelectasis. Additional incidental findings as above. Preliminary impression was provided by [employer].
--- NOTE | 2018-09-06 15:52 | CP.PCM.PN ---
Subjective - Date & Time of Evaluation Date of Evaluation: 09/02/18 Time of Evaluation: 15:52 Objective - Vital Signs/Intake and Output Vital Signs (last 24 hours): Temp Pulse Resp BP Pulse Ox 97.9 F 96 H 20 134/90 97 09/06/18 07:00 09/06/18 07:00 09/06/18 07:00 09/06/18 07:00 09/06/18 07:00 Intake and Output: 09/06/18 09/06/18 06:59 18:59 Intake Total 100 1000 Output Total 5 3 Balance 95 997 - Medications Medications: Current Medications Docusate Sodium (Colace) 100 mg PO TID [facility] Last Admin: 09/06/18 14:40 Dose: Not Given Heparin Sodium (Porcine) (Heparin) 5,000 units SC Q8 OMI Last Admin: 09/06/18 14:40 Dose: Not Given Metronidazole (Flagyl) 500 mg in 100 mls @ 100 mls/hr IVPB Q8H OMI; Protocol Last Admin: 09/06/18 10:05 Dose: 100 mls/hr Ceftriaxone Sodium 2 gm/ (Sodium Chloride) 100 mls @ 100 mls/hr IVPB DAILY OMI; Protocol Last Admin: 09/06/18 10:05 Dose: 100 mls/hr Pantoprazole Sodium (Protonix Ec Tab) 40 mg PO DAILY OMI Last Admin: 09/06/18 10:05 Dose: 40 mg - Labs Labs: 09/03/18 07:12 09/03/18 07:12 PT 17.1 SECONDS (9.7-12.2) H 08/30/18 19:29 INR 1.6 08/30/18 19:29 APTT 33 SECONDS (21-34) 08/30/18 19:29
--- NOTE | 2018-09-06 15:52 | CP.PCM.PN ---
Subjective - Date & Time of Evaluation Date of Evaluation: 09/04/18 Time of Evaluation: 15:52 Objective - Vital Signs/Intake and Output Vital Signs (last 24 hours): Temp Pulse Resp BP Pulse Ox 97.9 F 96 H 20 134/90 97 09/06/18 07:00 09/06/18 07:00 09/06/18 07:00 09/06/18 07:00 09/06/18 07:00 Intake and Output: 09/06/18 09/06/18 06:59 18:59 Intake Total 100 1000 Output Total 5 3 Balance 95 997 - Medications Medications: Current Medications Docusate Sodium (Colace) 100 mg PO TID [facility] Last Admin: 09/06/18 14:40 Dose: Not Given Heparin Sodium (Porcine) (Heparin) 5,000 units SC Q8 OMI Last Admin: 09/06/18 14:40 Dose: Not Given Metronidazole (Flagyl) 500 mg in 100 mls @ 100 mls/hr IVPB Q8H OMI; Protocol Last Admin: 09/06/18 10:05 Dose: 100 mls/hr Ceftriaxone Sodium 2 gm/ (Sodium Chloride) 100 mls @ 100 mls/hr IVPB DAILY [facility]; Protocol Last Admin: 09/06/18 10:05 Dose: 100 mls/hr Pantoprazole Sodium (Protonix Ec Tab) 40 mg PO DAILY [facility] Last Admin: 09/06/18 10:05 Dose: 40 mg - Labs Labs: 09/03/18 07:12 09/03/18 07:12 PT 17.1 SECONDS (9.7-12.2) H 08/30/18 19:29 INR 1.6 08/30/18 19:29 APTT 33 SECONDS (21-34) 08/30/18 19:29
--- NOTE | 2018-09-06 15:52 | CP.PCM.PN ---
Subjective - Date & Time of Evaluation Date of Evaluation: 09/01/18 Time of Evaluation: 15:52 Objective - Vital Signs/Intake and Output Vital Signs (last 24 hours): Temp Pulse Resp BP Pulse Ox 97.9 F 96 H 20 134/90 97 09/06/18 07:00 09/06/18 07:00 09/06/18 07:00 09/06/18 07:00 09/06/18 07:00 Intake and Output: 09/06/18 09/06/18 06:59 18:59 Intake Total 100 1000 Output Total 5 3 Balance 95 997 - Medications Medications: Current Medications Docusate Sodium (Colace) 100 mg PO TID [facility] Last Admin: 09/06/18 14:40 Dose: Not Given Heparin Sodium (Porcine) (Heparin) 5,000 units SC Q8 OMI Last Admin: 09/06/18 14:40 Dose: Not Given Metronidazole (Flagyl) 500 mg in 100 mls @ 100 mls/hr IVPB Q8H OMI; Protocol Last Admin: 09/06/18 10:05 Dose: 100 mls/hr Ceftriaxone Sodium 2 gm/ (Sodium Chloride) 100 mls @ 100 mls/hr IVPB DAILY [facility]MI; Protocol Last Admin: 09/06/18 10:05 Dose: 100 mls/hr Pantoprazole Sodium (Protonix Ec Tab) 40 mg PO DAILY [facility] Last Admin: 09/06/18 10:05 Dose: 40 mg - Labs Labs: 09/03/18 07:12 09/03/18 07:12 PT 17.1 SECONDS (9.7-12.2) H 08/30/18 19:29 INR 1.6 08/30/18 19:29 APTT 33 SECONDS (21-34) 08/30/18 19:29
--- NOTE | 2018-09-06 15:53 | CP.PCM.DIS ---
Provider - Provider Date of Admission: 08/30/18 20:06 Attending physician: Carmela Mccain MD Consults: 08/30/18 20:59 Infectious Disease Consult Routine Comment: Consulting Provider: Rebecca Addison Consulting Physician: Rebecca Addison Reason for Consult: Gram Negative Bacteremia 08/30/18 22:53 General Surgery Consult Routine Comment: Consulting Provider: Zach Donato Jr. Consulting Physician: Zach Donato Jr. Reason for Consult: liver abscess 09/03/18 16:55 Gastroenterology Consult Routine Comment: Consulting Provider: Roger Martel Consulting Physician: Roger Martel Reason for Consult: abscess liver Hospital Course - Lab Results Lab Results: Micro Results 09/04/18 07:04 Stool Ova and Parasite Concentrate Exam - Final 09/04/18 19:56 Stool Ova and Parasite Concentrate Exam - Final 08/30/18 19:15 Blood Blood Culture - Final NO GROWTH AFTER 5 DAYS 08/30/18 19:15 Blood Gram Stain - Final TEST NOT PERFORMED 08/30/18 18:45 Blood Blood Culture - Final NO GROWTH AFTER 5 DAYS 08/30/18 18:45 Blood Gram Stain - Final TEST NOT PERFORMED 08/31/18 13:46 Other: Please Indicate Gram Stain - Final 08/31/18 13:46 Other: Please Indicate Body Fluid Culture - Final No growth. 08/30/18 23:13 Urine,Clean Catch Urine Culture - Final No Growth (<1,000 CFU/ML) Most Recent Lab Values WBC 6.1 K/uL (4.8-10.8) 09/03/18 07:12 RBC 3.72 Mil/uL (4.40-5.90) L 09/03/18 07:12 Hgb 11.5 g/dL (12.0-18.0) L 09/03/18 07:12 Hct 34.4 % (35.0-51.0) L 09/03/18 07:12 MCV 92.4 fL (80.0-94.0) 09/03/18 07:12 MCH 31.0 pg (27.0-31.0) 09/03/18 07:12 MCHC 33.5 g/dL (33.0-37.0) 09/03/18 07:12 RDW 13.8 % (11.5-14.5) 09/03/18 07:12 Plt Count 466 K/uL (130-400) H 09/03/18 07:12 MPV 7.1 fL (7.2-11.7) L 09/03/18 07:12 Neut % (Auto) 56.1 % (50.0-75.0) 09/03/18 07:12 Lymph % (Auto) 30.3 % (20.0-40.0) 09/03/18 07:12 [place] % (Auto) 9.5 % (0.0-10.0) 09/03/18 07:12 Eos % (Auto) 3.2 % (0.0-4.0) 09/03/18 07:12 Baso % (Auto) 0.9 % (0.0-2.0) 09/03/18 07:12 Neut # (Auto) 3.4 K/uL (1.8-7.0) 09/03/18 07:12 Lymph # (Auto) 1.8 K/uL (1.0-4.3) 09/03/18 07:12 [place] # (Auto) 0.6 K/uL (0.0-0.8) 09/03/18 07:12 Eos # (Auto) 0.2 K/uL (0.0-0.7) 09/03/18 07:12 Baso # (Auto) 0.1 K/uL (0.0-0.2) 09/03/18 07:12 ESR 112 mm/hr (0-15) H 08/30/18 22:05 PT 17.1 SECONDS (9.7-12.2) H 08/30/18 19:29 INR 1.6 08/30/18 19:29 APTT 33 SECONDS (21-34) 08/30/18 19:29 pO2 16 mm/Hg (30-55) L 08/30/18 19:32 VBG pH 7.37 (7.32-7.43) 08/30/18 19:32 VBG pCO2 51 mmHg (40-60) 08/30/18 19:32 VBG HCO3 25.3 mmol/L 08/30/18 19:32 VBG Total CO2 31.1 mmol/L (22-28) H 08/30/18 19:32 VBG O2 Sat (Calc) 22.0 % (40-65) L 08/30/18 19:32 VBG Base Excess 3.1 mmol/L (0.0-2.0) H 08/30/18 19:32 VBG Potassium 4.0 mmol/L (3.6-5.2) 08/30/18 19:32 Sodium 137.0 mmol/l (132-148) 08/30/18 19:32 Chloride 101.0 mmol/L (98-107) 08/30/18 19:32 Glucose 141 mg/dl (75-110) H 08/30/18 19:32 Lactate 1.6 mmol/L (0.7-2.1) 08/30/18 19:32 Sodium 137 mmol/L (132-148) 09/03/18 07:12 Potassium 4.1 mmol/L (3.6-5.2) 09/03/18 07:12 Chloride 103 mmol/L (98-107) 09/03/18 07:12 Carbon Dioxide 29 mmol/L (22-30) 09/03/18 07:12 Anion Gap 9 (10-20) L 09/03/18 07:12 BUN 6 mg/dL (9-20) L 09/03/18 07:12 Creatinine 0.8 mg/dL (0.8-1.5) 09/03/18 07:12 Est GFR ( Amer) > 60 09/03/18 07:12 Est GFR (Non-Af Amer) > 60 09/03/18 07:12 POC Glucose (mg/dL) 189 mg/dL (65-110) H 09/06/18 11:40 Random Glucose 137 mg/dL (75-110) H D 09/03/18 07:12 Calcium 8.4 mg/dl (8.6-10.4) L 09/03/18 07:12 Phosphorus 3.4 mg/dL (2.5-4.5) 09/01/18 10:56 Magnesium 2.1 mg/dL (1.6-2.3) 09/01/18 10:56 Total Bilirubin 0.4 mg/dL (0.2-1.3) 09/03/18 07:12 AST 68 U/L (17-59) H D 09/03/18 07:12 ALT 65 U/L (21-72) 09/03/18 07:12 Alkaline Phosphatase 86 U/L (38-126) 09/03/18 07:12 C-React Prot High Sens > 15.00 mg/L (1.00-3.00) H 08/30/18 19:29 Total Protein 6.8 g/dL (6.3-8.3) 09/03/18 07:12 Albumin 3.3 g/dL (3.5-5.0) L 09/03/18 07:12 Globulin 3.5 gm/dL (2.2-3.9) 09/03/18 07:12 Albumin/Globulin Ratio 1.0 (1.0-2.1) 09/03/18 07:12 Procalcitonin 4.13 NG/ML (0.19-0.49) H 08/30/18 18:30 Venous Blood Potassium 4.0 mmol/L (3.6-5.2) 08/30/18 19:32 Urine Color Yellow (YELLOW) 08/30/18 23:13 Urine Clarity Clear (Clear) 08/30/18 23:13 Urine pH 5.0 (5.0-8.0) 08/30/18 23:13 Ur Specific [place] 1.042 (1.003-1.030) H 08/30/18 23:13 Urine Protein 1+ mg/dL (NEGATIVE) H 08/30/18 23:13 Urine Glucose (UA) Normal mg/dL (Normal) 08/30/18 23:13 Urine Ketones Negative mg/dL (NEGATIVE) 08/30/18 23:13 Urine Blood Negative (NEGATIVE) 08/30/18 23:13 Urine Nitrate Negative (NEGATIVE) 08/30/18 23:13 Urine Bilirubin Negative (NEGATIVE) 08/30/18 23:13 Urine Urobilinogen Normal mg/dL (0.2-1.0) 08/30/18 23:13 Ur Leukocyte Esterase Neg Jaspreet/uL (Negative) 08/30/18 23:13 Urine WBC (Auto) 2 /hpf (0-5) 08/30/18 23:13 Urine RBC (Auto) 1 /hpf (0-3) 08/30/18 23:13 Stool Leukocytes, Qual Negative (NEGATIVE) 09/04/18 18:00 RPR Nonreactive (NONREACTIVE) 09/01/18 07:14 T.pallidum Ab (FTA-ABS) Reactive (Nonreactive) H 08/30/18 22:05 Brucella Agglutinins (()) 08/30/18 22:05 Brucella IgG Antibody 0.08 08/30/18 22:05 Brucella IgM Antibody 0.08 08/30/18 22:05 Hep Bs Antigen Negative (NEGATIVE) 08/30/18 22:05 Hep Bs Antibody Positive (NEGATIVE) 08/30/18 22:05 Hepatitis C Antibody Non reactive (Non Reactive) 08/30/18 22:05 Hep C Ab Signal/Cutoff 0.05 (<1.0) 08/30/18 22:05 HIV 1&2 Antibody Screen Negative (NEGATIVE) 09/01/18 07:14 Ur L.pneumophila Ag Negative (NEGATIVE) 08/30/18 12:47 Mycoplasma pneumon IgG 1.53 (<=0.90) H 08/30/18 22:05 Mycoplasma pneumon IgM 67 U/mL (<770) 08/30/18 22:05 Discharge Exam - Head Exam Head Exam: ATRAUMATIC Discharge Plan - Follow Up Plan Condition: FAIR Disposition: HOME/ ROUTINE Instructions: Kamlesh-Pimentel Drain, Abscess (ED) Additional Instructions: Follow up with Dr. Walker in 1 or 2 weeks for the KEYUR Bulb management. Referrals: Rebecca Addison MD [Staff Provider] - Kevin Tim MD [Staff Provider] - Isra Walker MD [Staff Provider] - Zach Donato Jr., MD [Staff Provider] - Carmela Mccain MD [Staff Provider] - Roger Martel MD [Staff Provider] -
[2018-09-06 16:48] VITALS: BP 123/82; PULSE 85; TEMP 98.1
--- NOTE | 2018-09-06 18:28 | CP.PCM.PN ---
Subjective - Date & Time of Evaluation Date of Evaluation: 09/06/18 Time of Evaluation: 18:22 - Subjective Subjective: INFECTIOUS DISEASE PROGRESS NOTES ESAU DNAIELS MD, FACP 09/06/2018 5T 557-B CHART REVIEWED, AND NOTICED PT WAS STILL PRESENT PT EXAMINED CASE DISCUSSED WITH PT AND KEVIN CLINICALLY PT WAS SCHEDULED TO BE DISCHARGED 09/05/2018 APPARENTLY HE WAS SEEN BY RADIOLOGY AGAIN FOR ANOTHER CT SCAN. KEYUR DRAIN STILL IN PLACE, LIVER SURGEON AND I DISCUSSED THE LENGTH OF TIME FOR CT TO BE REPEATED. LUNGS CLEAR COR RR ABD SOFT KEYUR PRESENT EXT NO CCE FOR IV ANTIBIOTICS PLEASE INFORM ME OF FURTHER MANAGEMENT ISSUES. I WILL BE MANAGING HIS INFECTIOUS DISEASE ISSUES, INCLUDING REPEAT CT SCANS AND OR FURTHER CONSULTATIONS, APPROPIATELY NEEDED. ROCEPHIN 2GM IVPB OD AND PO FLAGYL 500MG PO TID X 5-6 WEEKS BI WEEKLY LABS AND WEEKLY OFFICE VISITS. PLEASE FEEL FREE TO DISCUSS MANAGEMENT ISSUES. Objective - Vital Signs/Intake and Output Vital Signs (last 24 hours): Temp Pulse Resp BP Pulse Ox 98.1 F 85 20 123/82 97 09/06/18 16:00 09/06/18 16:00 09/06/18 16:00 09/06/18 16:00 09/06/18 07:00 Intake and Output: 09/06/18 09/06/18 06:59 18:59 Intake Total 100 1300 Output Total 5 6 Balance 95 1294 - Medications Medications: Current Medications Docusate Sodium (Colace) 100 mg PO TID [facility] Last Admin: 09/06/18 17:39 Dose: Not Given Heparin Sodium (Porcine) (Heparin) 5,000 units SC Q8 [facility] Last Admin: 09/06/18 14:40 Dose: Not Given Metronidazole (Flagyl) 500 mg in 100 mls @ 100 mls/hr IVPB Q8H OMI; Protocol Last Admin: 09/06/18 10:05 Dose: 100 mls/hr Ceftriaxone Sodium 2 gm/ (Sodium Chloride) 100 mls @ 100 mls/hr IVPB DAILY [facility]; Protocol Last Admin: 09/06/18 10:05 Dose: 100 mls/hr Pantoprazole Sodium (Protonix Ec Tab) 40 mg PO DAILY [facility] Last Admin: 09/06/18 10:05 Dose: 40 mg - Labs Labs: 09/03/18 07:12 09/03/18 07:12 PT 17.1 SECONDS (9.7-12.2) H 08/30/18 19:29 INR 1.6 08/30/18 19:29 APTT 33 SECONDS (21-34) 08/30/18 19:29
== END 2018-09-06 19:04 | disposition home or self-care (01) | DRG 442 ==
LOC: C.ER 18:08 → C.9E 20:06 → C.5S 08-31 06:35
PROVIDERS: ADMIT Internal Medicine; ATTEND Internal Medicine
PROC: 0F9130Z Drainage of Right Lobe Liver with Drainage Device, Percutaneous Approach (ICD-10-PCS; principal; 2018-08-31)
PROC: BF25ZZZ Computerized Tomography (CT Scan) of Liver (ICD-10-PCS; 2018-08-31)
PROC: 02HV33Z Insertion of Infusion Device into Superior Vena Cava, Percutaneous Approach (ICD-10-PCS; 2018-09-05)
PROC: B518ZZA Fluoroscopy of Superior Vena Cava, Guidance (ICD-10-PCS; 2018-09-05)
DX: K75.0 Abscess of liver (principal); R78.81 Bacteremia; B96.89 Other specified bacterial agents as the cause of diseases classified elsewhere; R73.03 Prediabetes; R50.81 Fever presenting with conditions classified elsewhere; I10 Essential (primary) hypertension; D64.9 Anemia, unspecified; E78.5 Hyperlipidemia, unspecified; E78.00 Pure hypercholesterolemia, unspecified; Z87.891 Personal history of nicotine dependence; Z86.14 Personal history of Methicillin resistant Staphylococcus aureus infection; Z83.3 Family history of diabetes mellitus; Z82.49 Family history of ischemic heart disease and other diseases of the circulatory system

== ENCOUNTER 2018-09-19 08:27 | Outpatient (CLI) | payer BC | END 2018-09-19 08:28 | disposition home or self-care (01) | LOC: C.CTH 08:27 ==